=== PATIENT | male | born 1940 | race Caucasian/White ===

== ENCOUNTER 2020-12-17 19:25 | Inpatient (IN) ==
[2020-12-17] MEDS ORDERED: IOPAMIDOL 100 ML BOTTLE IV ONE (19:26)
--- NOTE | 2020-12-17 19:46 | Emergency Department Note ---
HPI General Chief complaint: Dizziness Stated complaint: dizziness Time Seen by Provider: 12/17/20 22:13 Source: patient Mode of arrival: EMS Limitations: no limitations History of Present Illness HPI Narrative: Narrative: Patient is an 80-year-old male with history of CHF and chronic dizziness who is brought in by EMS tonight with complaint of a couple of days of generalized weakness and some mild confusion. Family members did not note that he had had a fever at home but rather just noted him to be a bit slower in activities and then with some difficulty in answering detailed questions as opposed to specific confusion. No focal weakness. He denies any chest pain or shortness of breath. He has not had any cough. He has had both of his Covid shots as well as influenza shot last fall. He denies any urinary symptoms. He has chronic lower extremity swelling and his notes that they are perhaps the upper range of his normal variation in size. He has not experienced any urinary difficulties. He notes occasionally some soft stool but no persistent diarrhea or blood in the stool. He had not been aware of fever. He denies sore throat or other specific ill symptoms. No known ill contacts. Related Data Home Medications Medication Instructions Recorded Confirmed cyanocobalamin (vitamin B-12) 1,000 mcg PO DAILY 03/02/20 12/17/20 aspirin [Adult Low Dose Aspirin] 81 mg PO QHS 12/17/20 12/17/20 furosemide 40 mg PO QDAY 12/17/20 12/17/20 metformin 1,000 mg PO QHS 12/17/20 12/17/20 Previous Rx's Medication Instructions Recorded lancets 30 gauge #200 each 09/30/19 blood sugar diagnostic #100 each 08/07/20 blood-glucose meter #1 each 08/07/20 allopurinol 300 mg tablet 300 mg PO QDAY #90 tab 08/31/20 chlorthalidone 25 mg tablet 25 mg PO QDAY #90 tab 09/07/20 compress.stocking,knee,reg,med #2 each 10/25/20 carvedilol 25 mg tablet 25 mg PO BID 90 Days #180 tab 10/26/20 levothyroxine 75 mcg tablet 75 mcg PO QDAY #90 tab 12/13/20 Allergies Allergy/AdvReac Type Severity Reaction Status Date / Time No Known Drug Allergies Allergy Verified 12/17/20 19:35 Review of Systems ROS ROS Narrative: Narrative: A 10 system review of systems was performed and found to be negative except as outlined above. [facility] Narrative Patient History Narrative: Narrative: Medical/Surgical/Family History All Active Problems (Updated 12/18/20 @ 03:31 by Sen Jones MD) Acute febrile illness (Acute) Generalized weakness (Acute) Chronic systolic (congestive) heart failure (Acute) Medicare annual wellness visit, initial (Acute) Olecranon bursitis of right elbow (Acute) Carpal tunnel syndrome (Acute) Constipation (Acute) Gout attack (Acute) Cellulitis (Acute) Ataxia (Acute) Hydrocephalus (Acute) Dysphasia (Chronic) Vertigo (Chronic) Postoperative hypothyroidism (Chronic) LBBB (left bundle branch block) (Chronic) Weight gain (Chronic) Fatigue (Chronic) Hyphema of right eye (Acute) Subconjunctival hemorrhage of right eye (Acute) Sebaceous cyst (Chronic) 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) Vitamin B 12 deficiency (Chronic 09/01/14) Thyroid nodule (Chronic) Morbid obesity (Chronic 05/04/14) Hypothyroidism, acquired (Chronic 05/04/14) Hypertension, essential (Chronic) Hyperplasia of prostate with lower urinary tract symptoms (LUTS) (Chronic 08/03/12) Hyperlipidemia (Chronic 06/02/14) Hernia, ventral (Chronic 08/03/12) Esophageal reflux (Chronic 03/09/15) Erectile dysfunction (Chronic 04/21/12) Dizziness (Chronic 06/02/14) Diabetes mellitus, type II (Chronic) Excessive daytime sleepiness (Chronic) Congestive heart failure (Chronic 05/04/14) Cardiomyopathy (Chronic) Anemia (Chronic 06/02/14) Medical History (Updated 12/18/20 @ 03:31 by Sen Jones MD) Anemia (06/02/14) Bundle branch block (06/01/14-Dr Alexander) Bursitis (08/03/12) Olecranon Bursitis, right Cardiomyopathy (06/01/14-Dr Alexander) Congestive heart failure (05/04/14) Diabetes mellitus with proteinuria Diabetes mellitus, type II Disorder of thyroid Dizziness (06/02/14) Dysphasia Erectile dysfunction (04/21/12) Esophageal reflux (03/09/15) Excessive daytime sleepiness Fatigue Flank pain (04/21/12) Goiter (10/18/13-Dr Potter) Hernia, ventral (08/03/12) History of angiography (09/03/12) History of gout Hyperlipidemia (06/02/14) Hyperplasia of prostate with lower urinary tract symptoms (LUTS) (08/03/12) Hypertension, essential Hypothyroidism, acquired (05/04/14) Wants tsh, checked everytime Insomnia (02/01/13) Internal hemorrhoids with complication (08/04/12) Keratosis (04/21/12) LBBB (left bundle branch block) Lipoma of skin and subcutaneous tissue (08/03/12) Medicare annual wellness visit, initial Morbid obesity (05/04/14) Postoperative hypothyroidism Rectal bleeding (08/04/12) Screening for cholesterol level (05/04/14) Sebaceous cyst Pt does not want it removed. Shortness of breath (08/14/12) Thyroid nodule (10/18/13-Dr Potter) Vertigo Vitamin B 12 deficiency (09/01/14) Weight gain Surgical History History of cardiac catheterization (09/03/12) Left History of cataract surgery (10/18/13-Dr Potter) History of elbow surgery right History of hernia surgery History of partial thyroidectomy History of thymectomy (02/03/14) Status post cardiac pacemaker procedure (12/16/12) Biventricular ICD upgrade Family History Father , at age 72 Heart problem Mother , at age 68 Essential hypertension Social History Smoking Status: Never smoker Alcohol Intake Frequency: holiday/special occasion only Substance Use: does not use Exam Narrative Narrative: Narrative: General: Alert, elderly male who is speaking 6-8 word sentences. No overt confusion but he did seem to get hung up on discussion of flu and flu shots that kept making it way back into his discussion. HEENT: NCAT, PERRL, extraocular movements intact. There is approximately 4-6 beats of rapid eye movement on lateral gaze without persistent nystagmus. Oral pharynx with dry mucus membranes. No pharyngeal erythema. No conjunctival pallor Neck: Supple, No lymphadenopathy Chest: Stable, there is palpable mass in the left subclavian area consistent with his pacemaker/defibrillator. Heart: Borderline tachycardic and overall regular with occasional ectopy Lungs: Clear to auscultation bilaterally in the upper lung zones with decreased breath sounds and slight bibasilar inspiratory crackles in the lower lung zones Abdomen: Soft, obese, nondistended, nontender : No bladder distention Back: Nontraumatic, No CVA tenderness to palpation. Skin: No rash. He is with some forehead diaphoresis. There is a lipoma in the mid back region. Extremity: No cyanosis, there is bilateral lower extremity pitting edema, pulses 2+ radial Neurologic: Moves all extremities in appropriate coordinated fashion. General Limitations: no limitations Course Vital Signs Vital signs: Vital Signs Temperature 102.5 F H 12/17/20 19:25 Pulse Rate 105 H 12/17/20 19:25 Respiratory Rate 24 H 12/17/20 19:25 Blood Pressure 138/77 12/17/20 19:25 Pulse Oximetry (%) 94 12/17/20 19:25 Temperature 96.8 F L 12/18/20 00:49 Pulse Rate 74 12/18/20 02:51 Respiratory Rate 20 12/18/20 02:51 Blood Pressure 118/69 12/18/20 02:51 Pulse Oximetry (%) 96 12/18/20 02:51 MDM MDM Narrative Medical decision making narrative: Narrative: Patient presents with fever and generalized weakness. His chest x-ray does not show any sign of pneumonia. His urinalysis did not reveal any evidence of urinary tract infection. He does not have any abdominal pain that would imply intra-abdominal process. He was with mild confusion during his fever presentation but symptoms improved rapidly after Tylenol and I have lower suspicion for any meningitis or intracranial abscess. His Covid and influenza testing were negative but certainly he could have other flulike illness. Patient was with hypokalemia with potassium being replaced here in the emergency department. He is feeling much improved with his defervesced since, but given his age as well as other comorbidities, I do feel it appropriate that he be admitted to evaluate any potential progression. Speaking with Dr. Britton, he requested CTs to evaluate potential of other occult underlying infection prior to admission. These were completed and were without revealing further infection. During patient's work-up, he was with noted elevated pro calcitonin as well as elevated white blood cell count. I did give broad-spectrum antibiotics after blood culture was drawn but again have no specific source for infection noted at this time. Lab Data Result diagrams: 12/17/20 20:04 12/17/20 20:04 Labs: Lab Results 12/17/20 12/17/20 12/17/20 Range/Units 20:01 20:01 20:04 WBC 21.3 H (4.5-11.0) K/mcL RBC 4.75 (4.50-5.90) M/mcL Hgb 14.2 (13.5-16.5) g/dL Hct 39.6 L (41.0-55.0) % MCV 83.4 (80.0-100.0) fL MCH 29.9 (26.0-34.0) pg MCHC 35.9 (31.0-36.0) g/dL RDW 12.3 (11.5-14.5) % Plt Count 204 (140-440) K/mcL MPV 10.1 (7.4-10.4) fL Neut % (Auto) 91.5 H (38.0-78.0) % Lymph % (Auto) 2.4 L (15.0-49.0) % Hans[place] % (Auto) 5.4 (1.0-12.0) % Eos % (Auto) 0.4 (0.0-7.0) % Baso % (Auto) 0.3 (0.0-2.0) % Lymph # (Auto) 0.51 L (1.50-4.80) K/mcL Hanson # (Auto) 1.15 H (0.10-0.90) K/mcL Eos # (Auto) 0.09 (0.00-0.70) K/mcL Baso # (Auto) 0.06 (0.00-0.20) K/mcL Absolute Neutrophils 19.52 H (1.80-8.00) K/mcL ABG Methemoglobin 0.3 L (0.4-1.5) % VBG pH 7.54 H (7.32-7.42) U VBG pCO2 34.5 L (41.0-51.0) mmHg VBG pO2 77.0 H (25.0-40.0) mmHg VBG HCO3 28.6 H (24.0-28.0) mmol/L VBG Total CO2 29.6 H (25.0-29.0) mmol/L VBG O2 Saturation 92.9 H (40.0-70.0) % VBG Base Excess 6 H (-2-3) VBG Lactic Acid 3.3 H (0.5-2.0) mmol/L Carboxyhemoglobin 3.5 H (0.0-1.5) % THgb Total Hemoglobin 14.0 (13.5-16.5) gm/Dl Sodium (133-145) mmol/L Potassium (3.3-5.1) mmol/L Chloride (96-108) mmol/L Carbon Dioxide (22-30) mmol/L Anion Gap (8.0-16.0) BUN (8-23) mg/dL Creatinine (0.7-1.2) mg/dL GFR Calculation Glucose (70-105) mg/dL Calcium (8.6-10.4) mg/dL Magnesium (1.6-2.5) mg/dL Total Bilirubin (0.1-1.0) mg/dL AST (<40) U/L ALT (<40) U/L Alkaline Phosphatase (39-117) U/L Troponin T (<0.03) ng/mL NT-Pro-B Natriuret Pep (<450.0) pg/mL Total Protein (5.9-8.4) gm/dL Albumin (3.2-5.2) gm/dL Globulin (2.2-3.7) gm/dL Albumin/Globulin Ratio (1.0-2.3) Lipase (7-60) U/L Procalcitonin (<0.10) ng/mL Urine Color Urine Appearance (Clear) Urine pH (5.0-9.0) Ur Specific [place] (1.000-1.035) Urine Protein (Negative) mg/dL Urine Glucose (UA) (Negative) mg/dL Urine Ketones (Negative) mg/dL Urine Occult Blood (Negative) mg/dL Urine Nitrate (Negative) Urine Bilirubin (Negative) mg/dL Urine Urobilinogen mg/dL Ur Leukocyte Esterase (Negative) /ug Urine RBC (0-3) /hpf Urine WBC (0-4) /hpf Ur Squamous Epith Cells (0-4) /hpf Urine Bacteria (0) /hpf Ur Culture Indicated? 12/17/20 12/17/20 12/17/20 Range/Units 20:04 20:04 20:04 WBC (4.5-11.0) K/mcL RBC (4.50-5.90) M/mcL Hgb (13.5-16.5) g/dL Hct (41.0-55.0) % MCV (80.0-100.0) fL MCH (26.0-34.0) pg MCHC (31.0-36.0) g/dL RDW (11.5-14.5) % Plt Count (140-440) K/mcL MPV (7.4-10.4) fL Neut % (Auto) (38.0-78.0) % Lymph % (Auto) (15.0-49.0) % Hanson % (Auto) (1.0-12.0) % Eos % (Auto) (0.0-7.0) % Baso % (Auto) (0.0-2.0) % Lymph # (Auto) (1.50-4.80) K/mcL Hanson # (Auto) (0.10-0.90) K/mcL Eos # (Auto) (0.00-0.70) K/mcL Baso # (Auto) (0.00-0.20) K/mcL Absolute Neutrophils (1.80-8.00) K/mcL ABG Methemoglobin (0.4-1.5) % VBG pH (7.32-7.42) U VBG pCO2 (41.0-51.0) mmHg VBG pO2 (25.0-40.0) mmHg VBG HCO3 (24.0-28.0) mmol/L VBG Total CO2 (25.0-29.0) mmol/L VBG O2 Saturation (40.0-70.0) % VBG Base Excess (-2-3) VBG Lactic Acid (0.5-2.0) mmol/L Carboxyhemoglobin (0.0-1.5) % THgb Total Hemoglobin (13.5-16.5) gm/Dl Sodium 129 L (133-145) mmol/L Potassium 2.7 L* (3.3-5.1) mmol/L Chloride 87 L (96-108) mmol/L Carbon Dioxide 26 (22-30) mmol/L Anion Gap 16.0 (8.0-16.0) BUN 16 (8-23) mg/dL Creatinine 1.0 (0.7-1.2) mg/dL GFR Calculation 70 Glucose 192 H (70-105) mg/dL Calcium 9.1 (8.6-10.4) mg/dL Magnesium 1.1 L (1.6-2.5) mg/dL Total Bilirubin 0.9 (0.1-1.0) mg/dL AST 27 (<40) U/L ALT 25 (<40) U/L Alkaline Phosphatase 74 (39-117) U/L Troponin T < 0.01 (<0.03) ng/mL NT-Pro-B Natriuret Pep 372.1 (<450.0) pg/mL Total Protein 7.2 (5.9-8.4) gm/dL Albumin 4.2 (3.2-5.2) gm/dL Globulin 3.0 (2.2-3.7) gm/dL Albumin/Globulin Ratio 1.4 (1.0-2.3) Lipase 58 (7-60) U/L Procalcitonin 0.53 H (<0.10) ng/mL Urine Color Urine Appearance (Clear) Urine pH (5.0-9.0) Ur Specific [place] (1.000-1.035) Urine Protein (Negative) mg/dL Urine Glucose (UA) (Negative) mg/dL Urine Ketones (Negative) mg/dL Urine Occult Blood (Negative) mg/dL Urine Nitrate (Negative) Urine Bilirubin (Negative) mg/dL Urine Urobilinogen mg/dL Ur Leukocyte Esterase (Negative) /ug Urine RBC (0-3) /hpf Urine WBC (0-4) /hpf Ur Squamous Epith Cells (0-4) /hpf Urine Bacteria (0) /hpf Ur Culture Indicated? 12/17/20 Range/Units 21:43 WBC (4.5-11.0) K/mcL RBC (4.50-5.90) M/mcL Hgb (13.5-16.5) g/dL Hct (41.0-55.0) % MCV (80.0-100.0) fL MCH (26.0-34.0) pg MCHC (31.0-36.0) g/dL RDW (11.5-14.5) % Plt Count (140-440) K/mcL MPV (7.4-10.4) fL Neut % (Auto) (38.0-78.0) % Lymph % (Auto) (15.0-49.0) % Hanson % (Auto) (1.0-12.0) % Eos % (Auto) (0.0-7.0) % Baso % (Auto) (0.0-2.0) % Lymph # (Auto) (1.50-4.80) K/mcL [place] # (Auto) (0.10-0.90) K/mcL Eos # (Auto) (0.00-0.70) K/mcL Baso # (Auto) (0.00-0.20) K/mcL Absolute Neutrophils (1.80-8.00) K/mcL ABG Methemoglobin (0.4-1.5) % VBG pH (7.32-7.42) U VBG pCO2 (41.0-51.0) mmHg VBG pO2 (25.0-40.0) mmHg VBG HCO3 (24.0-28.0) mmol/L VBG Total CO2 (25.0-29.0) mmol/L VBG O2 Saturation (40.0-70.0) % VBG Base Excess (-2-3) VBG Lactic Acid (0.5-2.0) mmol/L Carboxyhemoglobin (0.0-1.5) % THgb Total Hemoglobin (13.5-16.5) gm/Dl Sodium (133-145) mmol/L Potassium (3.3-5.1) mmol/L Chloride (96-108) mmol/L Carbon Dioxide (22-30) mmol/L Anion Gap (8.0-16.0) BUN (8-23) mg/dL Creatinine (0.7-1.2) mg/dL GFR Calculation Glucose (70-105) mg/dL Calcium (8.6-10.4) mg/dL Magnesium (1.6-2.5) mg/dL Total Bilirubin (0.1-1.0) mg/dL AST (<40) U/L ALT (<40) U/L Alkaline Phosphatase (39-117) U/L Troponin T (<0.03) ng/mL NT-Pro-B Natriuret Pep (<450.0) pg/mL Total Protein (5.9-8.4) gm/dL Albumin (3.2-5.2) gm/dL Globulin (2.2-3.7) gm/dL Albumin/Globulin Ratio (1.0-2.3) Lipase (7-60) U/L Procalcitonin (<0.10) ng/mL Urine Color Yellow Urine Appearance Clear (Clear) Urine pH 5.0 (5.0-9.0) Ur Specific [place] 1.008 (1.000-1.035) Urine Protein Negative (Negative) mg/dL Urine Glucose (UA) Negative (Negative) mg/dL Urine Ketones Negative (Negative) mg/dL Urine Occult Blood 0.03 (Negative) mg/dL Urine Nitrate Negative (Negative) Urine Bilirubin Negative (Negative) mg/dL Urine Urobilinogen Negative mg/dL Ur Leukocyte Esterase Negative (Negative) /ug Urine RBC 1 (0-3) /hpf Urine WBC < 1 (0-4) /hpf Ur Squamous Epith Cells 0 (0-4) /hpf Urine Bacteria None (0) /hpf Ur Culture Indicated? No ED POC Tests ED POC Tests: [facility] - Influenza A Negative [facility] - Influenza B Negative [facility] - SARS Antigen Negative EKG Data EKG #1: EKG attestation: Yes I reviewed and interpreted this EKG. EKG results narrative: ECG time 1928 demonstrates paced rhythm at a rate of 108 bpm. This appears to be a ventricular paced rhythm. There are occasio nal spontaneous ventricular beats. No further interpretation is possible due to the paced nature of the rhythm. Discharge Plan Patient/Caregiver Discharge Instructions Pt seen by MANAGER OF INFORMATION/PA only: No Clinical Impression: Acute febrile illness, Generalized weakness Patient Disposition: Xfer As Inpt ([facility]) Condition: Serious Discharge Date/Time: 12/18/20 02:38 Discharge Location: [facility]
[2020-12-17] MEDS ORDERED: ACETAMINOPHEN 325 MG TABLET PO ONE (20:00)
[2020-12-17 20:32] LABS: ABG Methemoglobin 0.3 % (0.4-1.5); VBG Base Excess 6 (-2-3); VBG HCO3 28.6 mmol/L (24.0-28.0); VBG Oxygen Saturation 92.9 % (40.0-70.0); VBG PCO2 34.5 mmHg (41.0-51.0); VBG PH 7.54 U (7.32-7.42); VBG Total CO2 29.6 mmol/L (25.0-29.0)
[2020-12-17 20:34] LABS: Basophils # (Auto) 0.06 K/mcL (0.00-0.20); Basophils % (Auto) 0.3 % (0.0-2.0); Eosinophils # (Auto) 0.09 K/mcL (0.00-0.70); Eosinophils % (Auto) 0.4 % (0.0-7.0); Hematocrit 39.6 % (41.0-55.0); Hemoglobin 14.2 g/dL (13.5-16.5); Lymphocytes # (Auto) 0.51 K/mcL (1.50-4.80); Lymphocytes % (Auto) 2.4 % (15.0-49.0); Mean Cell Volume 83.4 fL (80.0-100.0); Mean Corpuscular HGB Conc 35.9 g/dL (31.0-36.0); Mean Platelet Volume 10.1 fL (7.4-10.4); Monocytes # (Auto) 1.15 K/mcL (0.10-0.90); Monocytes % (Auto) 5.4 % (1.0-12.0); Neutrophils % (Auto) 91.5 % (38.0-78.0); Platelet Count 204 K/mcL (140-440); RBC 4.75 M/mcL (4.50-5.90); Red Cell Distribution Width 12.3 % (11.5-14.5); WBC 21.3 K/mcL (4.5-11.0)
[2020-12-17 21:09] LABS: proBNP 372.1 pg/mL (<450.0)
[2020-12-17 21:18] LABS: ALT/SGPT 25 U/L (<40); AST/SGOT 27 U/L (<40); Albumin 4.2 gm/dL (3.2-5.2); Albumin/Globulin Ratio 1.4 (1.0-2.3); Alkaline Phosphatase 74 U/L (39-117); Bilirubin,Total 0.9 mg/dL (0.1-1.0); Blood Urea Nitrogen 16 mg/dL (8-23); Calcium 9.1 mg/dL (8.6-10.4); Carbon Dioxide 26 mmol/L (22-30); Chloride 87 mmol/L (96-108); Glomerular Filtration Rate 70; Glucose 192 mg/dL (70-105)
[2020-12-17] MEDS ORDERED: cefTRIAXone 2 GM in DEXTROSE 5% IN WATER 50 ML IV ONE (22:13)
[2020-12-17] MEDS ORDERED: POTASSIUM CHLORIDE 20 MEQ in DEXTROSE 5% IN WATER 250 ML IV ONE (22:13)
[2020-12-17 22:32] LABS: Appearance,Urine CLEAR (Clear); Bilirubin,Urine Negative (Negative); Color,Urine YELLOW; Culture Indicated,Urine No; Glucose,Urine (UA) Negative (Negative); Ketones,Urine Negative (Negative); Leukocyte Esterase,Urine Negative /ug (Negative); Nitrate,Urine Negative (Negative); Protein,Urine Negative (Negative); Specific Gravity,Urine 1.008 (1.000-1.035); Urine Blood 0.03 mg/dL (Negative); Urine RBC 1 /hpf (0-3); Urine Squamous Epithelial Cell 0 /hpf (0-4); Urine WBC < 1 /hpf (0-4); Urobilinogen,Urine Negative
[2020-12-18] MEDS ORDERED: PIPERACILLIN SODIUM/TAZOBACTAM 4.5 GM in DEXTROSE 5% IN WATER 50 ML IV ONE (00:01)
[2020-12-18] MEDS ORDERED: ACETAMINOPHEN 325 MG TABLET PO PRN (02:54)
--- NOTE | 2020-12-18 05:41 | XRay Report ---
INDICATION: fever, sob TECHNIQUE: PA and lateral upright chest x-ray COMPARISON: 12/17/2012, 12/16/2012 FINDINGS: Left-sided pacemaker with transvenous pacemaker leads in appropriate positions for right atrium and right ventricle. Lungs: Lungs are negative. No focal pulmonary parenchymal infiltrate or mass Heart, vascular: No significant cardiomegaly. Pulmonary vascularity is normal. No pulmonary edema or pulmonary congestion Mediastinum, edelmira: No mediastinal widening. No hilar mass Pleura:No pleural fluid. No pleural-based mass or calcification Thoracic spine, ribs: No thoracic compression fracture. Ribs are negative. No fracture. No lytic lesion IMPRESSION: 1. No acute abnormality 2. No interval change since 12/17/2012 Interpreted and Authenticated by: Aquilino Ramirez 12/18/20
--- NOTE | 2020-12-18 05:59 | Cat Scan Report ---
INDICATION: eval for pneumonia,or abdo/pelvic fever source COMPARISON: Chest CT scan dated 04/04/2016 TECHNIQUE: Axial images were obtained through the chest,abdomen and pelvis. Sagittally and coronally reformatted images. 90ml Isovue 370 injected intravenously. Oral contrast material was given FINDINGS: Examination was initially interpreted by [facility] Chest CT: Lungs:Mild parenchymal density at the lung bases consistent with mild atelectasis . No parenchymal consolidation. There is no significant centrilobular or paraseptal emphysema. There is a 4 to 5 mm pleural-based nodule in the left lower lobe, image 60. This is unchanged since 04/04/2016 and is benign. There is no honeycombing. No intralobular septal thickening. No bronchiectasis. Mediastinum:No pathologic mediastinal adenopathy. No hilar mass. Thoracic aorta is normal without aneurysmal dilatation Heart:No significant cardiomegaly. No pericardial effusion. There are pacemaker leads in place. There are severe coronary artery calcification Pleura:No pleural fluid. No pleural-based mass. No pleural calcifications Axilla, supraclavicular regions, chest wall:No pathologic axillary or supraclavicular adenopathy. 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 No compression fractures. No lytic lesions. No paraspinal mass Abdomen/Pelvis: Liver:Low density liver consistent with hepatic steatosis. There is no focal mass. Liver contour is smooth Gallbladder, bilary:Small calcified gallstones. No gallbladder wall thickening. No pericholecystic fluid. No dilated bile ducts Spleen:10 mm low density lesion within splenic parenchyma is probably a benign cyst. There is no splenomegaly. Normal enhancement of the splenic and portal veins Pancreas:There is no pancreatic mass. Pancreatic duct is not dilated. There is minimal. Pancreatic inflammatory change. There is mild peripancreatic and periportal adenopathy. Mild pancreatitis is possible. Correlation with pancreatic enzymes is recommended. Adrenal glands:Negative Kidneys, ureters, bladder: Small focal cortical defect in the right upper pole with associated calcification. There are benign left renal cyst. There is no solid renal mass. No obstructing calculi. No hydronephrosis. No hydroureter. No ureteral stones There is a catheter within the urinary bladder. Bladder is collapsed Gastrointestinal:No detectable colonic mass. There is no diverticulitis. Small bowel is negative. No mechanical small bowel obstruction. Stomach and duodenum are within normal limits Appendix: The appendix is negative Vascular:Atherosclerotic calcification of the abdominal aorta. There is no abdominal aortic aneurysm. Celiac trunk and superior mesenteric artery are normal. Inferior mesenteric artery is opacified Lymphatic:As described above there is mild peripancreatic and periportal adenopathy. This is nonspecific. No pathologic retroperitoneal adenopathy. Inguinal adenopathy Mesentery, peritoneum:No free intraperitoneal fluid. No intra-abdominal abscess. No pneumoperitoneum Reproductive:Prostate is not significantly enlarged Musculoskeletal:Severe degenerative disc disease at L5-S1. There is facet arthropathy at L4-L5 with slight anterolisthesis and spinal canal stenosis. No sacral or pelvic fracture. Hips are negative. IMPRESSION: 1. Severe coronary artery calcification 2. Hepatic steatosis 3. Mild peripancreatic inflammatory change with mild peripancreatic and portal adenopathy 4. Cholelithiasis 5. Substernal goiter, unchanged since 2016 6. No intraabdominal abscess. 7. Degenerative disc disease and facet arthropathy. Spinal canal stenosis at L4-L5 The exam was performed using radiation dose optimization techniques including, but not limited to, automated exposure control, adjustment of the mA and/or kV according to patient size and use of iterative reconstruction technique. Interpreted and Authenticated by: Aquilino Ramirez 12/18/20
--- NOTE | 2020-12-18 07:27 | Internal Med History&Physical ---
HPI History of Present Illness Patient information: Note initiated : 12/18/20 at 7:25 am Service Date, if different from initiated Date: [] Patient: Andrew León a 80 y/o M admitted on 12/18/20 for dizziness. Chief Complaint: [] History of present illness: Mr. León is a 80 year old M Presented ED with increasing weakness and lightheadedness. Sounds like there was some mild confusion as well. Does have a history of heart failure and has chr onic lower extremity swelling. The lower extremity swelling is mild off and on for quite a long time but over the past month it has been increasing despite starting diuretics through his primary care provider. 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 He went to bed the other night feeling his normal but in the morning he was too weak to get up out of the chair. He has had difficulty with weakness and walking over the past 6 months or more but yesterday morning he could not get up out of the chair and it was worse than usual. And he was also very lightheaded. He did not feel feverish but in the ED he was febrile. And no cough. He also had both Covid shots. No reports of diarrhea or dysuria Reports no recent illnesses no sick contacts. Work-up in the ED found him to have a fever and leukocytosis. Blood pressure stable. Chest x-ray is unrevealing and CT abdomen pelvis unrevealing as well. Lactate was elevated at 3.3 and procalcitonin was mildly elevated. Review of Systems: Pertinent positives as above. Denies headache/ chills/ nausea/vomiting/chest or abdominal pain/cough/dyspnea/diarrhea. Remaining 10 point review of system reviewed negative PFSH PFSH All Active Problems (Updated 12/18/20 @ 03:31 by Sen Jones MD) Acute febrile illness (Acute) Generalized weakness (Acute) Chronic systolic (congestive) heart failure (Acute) Medicare annual wellness visit, initial (Acute) Olecranon bursitis of right elbow (Acute) Carpal tunnel syndrome (Acute) Constipation (Acute) Gout attack (Acute) Cellulitis (Acute) Ataxia (Acute) Hydrocephalus (Acute) Dysphasia (Chronic) Vertigo (Chronic) Postoperative hypothyroidism (Chronic) LBBB (left bundle branch block) (Chronic) Weight gain (Chronic) Fatigue (Chronic) Hyphema of right eye (Acute) Subconjunctival hemorrhage of right eye (Acute) Sebaceous cyst (Chronic) 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) Vitamin B 12 deficiency (Chronic 09/01/14) Thyroid nodule (Chronic) Morbid obesity (Chronic 05/04/14) Hypothyroidism, acquired (Chronic 05/04/14) Hypertension, essential (Chronic) Hyperplasia of prostate with lower urinary tract symptoms (LUTS) (Chronic 08/03/12) Hyperlipidemia (Chronic 06/02/14) Hernia, ventral (Chronic 08/03/12) Esophageal reflux (Chronic 03/09/15) Erectile dysfunction (Chronic 04/21/12) Dizziness (Chronic 06/02/14) Diabetes mellitus, type II (Chronic) Excessive daytime sleepiness (Chronic) Congestive heart failure (Chronic 05/04/14) Cardiomyopathy (Chronic) Anemia (Chronic 06/02/14) Medical History (Updated 12/18/20 @ 03:31 by Sen Jones MD) Anemia (06/02/14) Bundle branch block (06/01/14-Dr Alexander) Bursitis (08/03/12) Olecranon Bursitis, right Cardiomyopathy (06/01/14-Dr Alexander) Congestive heart failure (05/04/14) Diabetes mellitus with proteinuria Diabetes mellitus, type II Disorder of thyroid Dizziness (06/02/14) Dysphasia Erectile dysfunction (04/21/12) Esophageal reflux (03/09/15) Excessive daytime sleepiness Fatigue Flank pain (04/21/12) Goiter (10/18/13-Dr Potter) Hernia, ventral (08/03/12) History of angiography (09/03/12) History of gout Hyperlipidemia (06/02/14) Hyperplasia of prostate with lower urinary tract symptoms (LUTS) (08/03/12) Hypertension, essential Hypothyroidism, acquired (05/04/14) Wants tsh, checked everytime Insomnia (02/01/13) Internal hemorrhoids with complication (08/04/12) Keratosis (04/21/12) LBBB (left bundle branch block) Lipoma of skin and subcutaneous tissue (08/03/12) Medicare annual wellness visit, initial Morbid obesity (05/04/14) Postoperative hypothyroidism Rectal bleeding (08/04/12) Screening for cholesterol level (05/04/14) Sebaceous cyst Pt does not want it removed. Shortness of breath (08/14/12) Thyroid nodule (10/18/13-Dr Potter) Vertigo Vitamin B 12 deficiency (09/01/14) Weight gain Surgical History History of cardiac catheterization (09/03/12) Left History of cataract surgery (10/18/13-Dr Potter) History of elbow surgery right History of hernia surgery History of partial thyroidectomy History of thymectomy (02/03/14) Status post cardiac pacemaker procedure (12/16/12) Biventricular ICD upgrade Family History Father , at age 72 Heart problem Mother , at age 68 Essential hypertension Social History marital status: alcohol intake frequency: holiday/special occasion only substance use type: does not use MEDS/ALLERGIES Home Medications and Allergies Home Medications Medication Instructions Recorded Confirmed Type lancets 30 gauge #200 each 09/30/19 12/18/20 Rx cyanocobalamin (vitamin B-12) 1,000 mcg PO DAILY 03/02/20 12/17/20 History blood-glucose meter #1 each 08/07/20 12/18/20 Rx allopurinol 300 mg tablet 300 mg PO QDAY #90 tab 08/31/20 12/17/20 Rx chlorthalidone 25 mg tablet 25 mg PO QDAY #90 tab 09/07/20 12/17/20 Rx carvedilol 25 mg tablet 25 mg PO BID 90 Days #180 tab 10/26/20 12/17/20 Rx levothyroxine 75 mcg tablet 75 mcg PO QDAY #90 tab 12/13/20 12/17/20 Rx aspirin [Adult Low Dose Aspirin] 81 mg PO QHS 12/17/20 12/17/20 History furosemide 40 mg PO BID 12/17/20 12/18/20 History metformin 1,000 mg PO QHS 12/17/20 12/17/20 History Allergies Allergy/AdvReac Type Severity Reaction Status Date / Time No Known Drug Allergies Allergy Verified 12/17/20 19:35 EXAM Constitutional Vitals: Temp Pulse Resp BP Pulse Ox 98.4 F 74 20 139/88 97 12/18/20 04:01 12/18/20 03:15 12/18/20 06:24 12/18/20 04:01 12/18/20 07:00 Exam: General: Alert, Awake, No acute Distress, obese Eyes/N/T: EOMI, PERRL, Head/Neck: neck supple, normocephalic atraumatic CV: RRR, No murmurs, normal s1/s2 Pulm: Clear b/l, no wheezing/rhonchi/rales Abd: soft, nontender, +BS x4 Ext: no clubbing/cyanosis, 3+ b/l LE edema Neuro: Alert, no focal deficits, moves all extremities, CN 2-12 grossly intact, symmetrical strength b/l upper/lower, sensations intact b/l upper/lower Skin: warm/dry DATA Data Completed and Pending Labs: Labs from last 24 hours 12/17/20 12/17/20 12/17/20 21:43 20:04 20:04 WBC RBC Hgb Hct MCV MCH MCHC RDW Plt Count MPV Neut % (Auto) Lymph % (Auto) [place] % (Auto) Eos % (Auto) Baso % (Auto) Lymph # (Auto) [place] # (Auto) Eos # (Auto) Baso # (Auto) Absolute Neutrophils ABG Methemoglobin VBG pH VBG pCO2 VBG pO2 VBG HCO3 VBG Total CO2 VBG O2 Saturation VBG Base Excess VBG Lactic Acid Carboxyhemoglobin Total Hemoglobin Sodium Potassium Chloride Carbon Dioxide Anion Gap BUN Creatinine GFR Calculation Glucose Calcium Magnesium Total Bilirubin AST ALT Alkaline Phosphatase Troponin T < 0.01 NT-Pro-B Natriuret Pep Total Protein Albumin Globulin Albumin/Globulin Ratio Lipase Procalcitonin 0.53 H Urine Color Yellow Urine Appearance Clear Urine pH 5.0 Ur Specific [place] 1.008 Urine Protein Negative Urine Glucose (UA) Negative Urine Ketones Negative Urine Occult Blood 0.03 Urine Nitrate Negative Urine Bilirubin Negative Urine Urobilinogen Negative Ur Leukocyte Esterase Negative Urine RBC 1 Urine WBC < 1 Ur Squamous Epith Cells 0 Urine Bacteria None Ur Culture Indicated? No 12/17/20 12/17/20 12/17/20 20:04 20:04 20:01 WBC 21.3 H RBC 4.75 Hgb 14.2 Hct 39.6 L MCV 83.4 MCH 29.9 MCHC 35.9 RDW 12.3 Plt Count 204 MPV 10.1 Neut % (Auto) 91.5 H Lymph % (Auto) 2.4 L [place] % (Auto) 5.4 Eos % (Auto) 0.4 Baso % (Auto) 0.3 Lymph # (Auto) 0.51 L [place] # (Auto) 1.15 H Eos # (Auto) 0.09 Baso # (Auto) 0.06 Absolute Neutrophils 19.52 H ABG Methemoglobin VBG pH VBG pCO2 VBG pO2 VBG HCO3 VBG Total CO2 VBG O2 Saturation VBG Base Excess VBG Lactic Acid 3.3 H Carboxyhemoglobin Total Hemoglobin Sodium 129 L Potassium 2.7 L* Chloride 87 L Carbon Dioxide 26 Anion Gap 16.0 BUN 16 Creatinine 1.0 GFR Calculation 70 Glucose 192 H Calcium 9.1 Magnesium 1.1 L Total Bilirubin 0.9 AST 27 ALT 25 Alkaline Phosphatase 74 Troponin T NT-Pro-B Natriuret Pep 372.1 Total Protein 7.2 Albumin 4.2 Globulin 3.0 Albumin/Globulin Ratio 1.4 Lipase 58 Procalcitonin Urine Color Urine Appearance Urine pH Ur Specific [place] Urine Protein Urine Glucose (UA) Urine Ketones Urine Occult Blood Urine Nitrate Urine Bilirubin Urine Urobilinogen Ur Leukocyte Esterase Urine RBC Urine WBC Ur Squamous Epith Cells Urine Bacteria Ur Culture Indicated? 12/17/20 20:01 WBC RBC Hgb Hct MCV MCH MCHC RDW Plt Count MPV Neut % (Auto) Lymph % (Auto) [place] % (Auto) Eos % (Auto) Baso % (Auto) Lymph # (Auto) [place] # (Auto) Eos # (Auto) Baso # (Auto) Absolute Neutrophils ABG Methemoglobin 0.3 L VBG pH 7.54 H VBG pCO2 34.5 L VBG pO2 77.0 H VBG HCO3 28.6 H VBG Total CO2 29.6 H VBG O2 Saturation 92.9 H VBG Base Excess 6 H VBG Lactic Acid Carboxyhemoglobin 3.5 H Total Hemoglobin 14.0 Sodium Potassium Chloride Carbon Dioxide Anion Gap BUN Creatinine GFR Calculation Glucose Calcium Magnesium Total Bilirubin AST ALT Alkaline Phosphatase Troponin T NT-Pro-B Natriuret Pep Total Protein Albumin Globulin Albumin/Globulin Ratio Lipase Procalcitonin Urine Color Urine Appearance Urine pH Ur Specific [place] Urine Protein Urine Glucose (UA) Urine Ketones Urine Occult Blood Urine Nitrate Urine Bilirubin Urine Urobilinogen Ur Leukocyte Esterase Urine RBC Urine WBC Ur Squamous Epith Cells Urine Bacteria Ur Culture Indicated? A/P Narrative A/P Narrative: A: *Sepsis w/lactic acidosis: Unknown source of infection -febrile/leukocytosis/elevated PCT&lactate -CXR and Abd/pelv imaging unremarkable for source, no wounds *Peripheral edema, acute on chronic: *CMP(EF 45% in September) w/ACID: *Hyponatremia: *Hypokalemia/hypomagnesemia: *DM: *HTN: *Hypothyroidism: *NPH: P: -Zosyn, pending BC -urine studies -electrolyte replacement -cont home ASA/Coreg (start on lower dose and monitor BP) -SSI, hold metformin -compression stockings/elevate -pt/ot -ppx: lovenox full code Time Spent With Patient Time: Total time spent is greater than 50% in coordination of care (as documented) at patient's floor/unit and/or counseling patient: QUALITY VTE Deep Vein Thrombosis/Pulmonary Embolism Present on Admission: No
[2020-12-18] MEDS ORDERED: MAGNESIUM SULFATE 2 GM/50 ML BAG IV ONE ×2 (07:32→17:17)
[2020-12-18] MEDS ORDERED: POTASSIUM CHLORIDE 20 MEQ TABLET PO ONE ×3 (07:32→21:00)
[2020-12-18] MEDS: PIPERACILLIN SODIUM/TAZOBACTAM 3.375 GM in DEXTROSE 5% IN WATER 50 ML IV SCH ×3 (08:16→18:00)
[2020-12-18 08:52] LABS: Osmolality,Urine 422 mOSM/kg (80-1000); Sodium, Urine Random 71 mmol/L
[2020-12-18] MEDS ORDERED: FUROSEMIDE 40 MG/4 ML VIAL IV ONE (09:06)
[2020-12-18] MEDS ORDERED: POTASSIUM CHLORIDE 40 MEQ in DEXTROSE 5% IN WATER 500 ML IV PRN (09:07)
[2020-12-18] MEDS ORDERED: POTASSIUM CHLORIDE 20 MEQ TABLET PO PRN ×2 (09:07)
[2020-12-18] MEDS ORDERED: SENNOSIDES 1 TABLET PO PRN (09:07)
[2020-12-18] MEDS ORDERED: DEXTROSE 31 GM ORAL.SUSP PO PRN (09:07)
[2020-12-18] MEDS ORDERED: DEXTROSE 50% 50 ML VIAL IV PRN (09:07)
[2020-12-18] MEDS ORDERED: MAGNESIUM SULFATE 2 GM/50 ML BAG IV PRN (09:07)
[2020-12-18] MEDS ORDERED: ONDANSETRON 4 MG/2 ML VIAL IV PRN (09:07)
[2020-12-18] MEDS ORDERED: IPRATROPIUM/ALBUTEROL 3 ML AMPUL.NEB NEB PRN (09:07)
[2020-12-18 09:14] LABS: Uric Acid 7.1 mg/dL (2.5-8.0)
[2020-12-18] MEDS: ENOXAPARIN 40 MG/0.4 ML SYRINGE SQ SCH (09:30)
[2020-12-18 10:33] LABS: Band Neutrophils % 3 % (0-10); Lymphocytes % 4 % (15-49); Monocytes % (Manual) 3 % (1-12); Platelet Estimate NORMAL (Normal); RBC Morphology NORMAL (Normal); Segmented Neutrophils % 90 % (38-78)
[2020-12-18] MEDS: INSULIN LISPRO 1 UNIT/0.01 ML UNIT SQ SCH ×3 (11:55→20:31)
[2020-12-18] MEDS: 0.9 % SODIUM CHLORIDE 10 ML SYRINGE IV SCH ×4 (13:41→23:00)
[2020-12-18] MEDS: CARVEDILOL 12.5 MG TABLET PO SCH (17:29)
[2020-12-18 17:35] LABS: Blood Urea Nitrogen 15 mg/dL (8-23); Calcium 9.2 mg/dL (8.6-10.4); Carbon Dioxide 32 mmol/L (22-30); Chloride 88 mmol/L (96-108); Glomerular Filtration Rate 56; Glucose 148 mg/dL (70-105)
[2020-12-18] MEDS ORDERED: POTASSIUM CHLORIDE 20 MEQ in DEXTROSE 5% IN WATER 250 ML IV ONE (17:36)
[2020-12-18] MEDS ORDERED: FUROSEMIDE 20 MG/2 ML VIAL IV ONE (18:31)
[2020-12-18] MEDS ORDERED: VANCOMYCIN PER PHARMACY IV ONE (18:45)
[2020-12-18] MEDS: VANCOMYCIN 1,500 MG in 0.9 % SODIUM CHLORIDE 500 ML IV SCH (20:10)
[2020-12-18] MEDS ORDERED: VANCOMYCIN PER PHARMACY IV SCH (20:15)
[2020-12-18] MEDS: DOCUSATE SODIUM 100 MG CAPSULE PO SCH (20:32)
[2020-12-18] MEDS ORDERED: ASPIRIN 81 MG TAB.CHEW PO SCH (21:00)
[2020-12-19] MEDS: 0.9 % SODIUM CHLORIDE 10 ML SYRINGE IV SCH ×4 (00:20→21:53)
[2020-12-19] MEDS: PIPERACILLIN SODIUM/TAZOBACTAM 3.375 GM in DEXTROSE 5% IN WATER 50 ML IV SCH ×2 (00:22→05:49)
[2020-12-19 06:47] LABS: Basophils # (Auto) 0.04 K/mcL (0.00-0.20); Basophils % (Auto) 0.3 % (0.0-2.0); Eosinophils # (Auto) 0.04 K/mcL (0.00-0.70); Eosinophils % (Auto) 0.3 % (0.0-7.0); Hematocrit 36.8 % (41.0-55.0); Hemoglobin 12.8 g/dL (13.5-16.5); Lymphocytes # (Auto) 1.47 K/mcL (1.50-4.80); Lymphocytes % (Auto) 10.3 % (15.0-49.0); Mean Cell Volume 85.8 fL (80.0-100.0); Mean Corpuscular HGB Conc 34.8 g/dL (31.0-36.0); Mean Platelet Volume 10.3 fL (7.4-10.4); Neutrophils % (Auto) 82.1 % (38.0-78.0); Platelet Count 163 K/mcL (140-440); RBC 4.29 M/mcL (4.50-5.90); Red Cell Distribution Width 12.8 % (11.5-14.5); WBC 14.3 K/mcL (4.5-11.0)
[2020-12-19] MEDS: DOCUSATE SODIUM 100 MG CAPSULE PO SCH (07:26)
[2020-12-19] MEDS: CARVEDILOL 12.5 MG TABLET PO SCH ×2 (07:33→17:45)
[2020-12-19] MEDS: INSULIN LISPRO 1 UNIT/0.01 ML UNIT SQ SCH ×4 (07:33→21:54)
[2020-12-19 07:40] LABS: ALT/SGPT 20 U/L (<40); AST/SGOT 20 U/L (<40); Albumin 3.4 gm/dL (3.2-5.2); Albumin/Globulin Ratio 1.1 (1.0-2.3); Alkaline Phosphatase 63 U/L (39-117); Bilirubin,Direct 0.3 mg/dL (<0.3); Blood Urea Nitrogen 14 mg/dL (8-23); Calcium 8.7 mg/dL (8.6-10.4); Carbon Dioxide 28 mmol/L (22-30); Chloride 91 mmol/L (96-108); Globulin 3.1 gm/dL (2.2-3.7); Glomerular Filtration Rate 62; Glucose 141 mg/dL (70-105); Lactate Dehydrogenase 150 U/L (135-225); Phosphorous 2.8 mg/dL (2.5-4.5); Triglycerides 93 mg/dL (<150); Uric Acid 6.6 mg/dL (2.5-8.0)
--- NOTE | 2020-12-19 07:40 | Internal Med Progress Note ---
SUBJECTIVE Subjective Patient information: Note initiated : 12/19/20 at 7:35 am Service Date, if different from initiated Date: [] Patient: Andrew León 80 y/o M admitted on 12/18/20 for dizziness. Chief Complaint: [] Interval history: History of present illness: Mr. León is a 80 year old M Presented ED with increasing weakness and lightheadedness. Sounds like there was some mild confusion as well. Does have a history of heart failure and has chronic lower extremity swelling. The lower extremity swelling is mild off and on for quite a long time but over the past month it has been increasing despite starting diuretics through his primary care provider. 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 He went to bed the other night feeling his normal but in the morning he was too weak to get up out of the chair. He has had difficulty with weakness and walking over the past 6 months or more but yesterday morning he could not get up out of the chair and it was worse than usual. And he was also very lightheaded. He did not feel feverish but in the ED he was febrile. And no cough. He also had both Covid shots. No reports of diarrhea or dysuria Reports no recent illnesses no sick contacts. Work-up in the ED found him to have a fever and leukocytosis. Blood pressure stable. Chest x-ray is unrevealing and CT abdomen pelvis unrevealing as well. Lactate was elevated at 3.3 and procalcitonin was mildly elevated. 4/6 No new pains or complaints or overnight events. Leukocytosis improved. Sodium little better potassium allow. The blood culture obtained in the ED is growing gram-positive cocci. Patient started on Vanco symptoms that resulted. He still feels weak. He did have diarrhea after the oral contrast for the CT abdomen Review of Systems: denies headache/fever/chills/nausea/vomiting/chest or abdominal pain/cough/dyspnea. Otherwise see above. Constitutional Vitals: Vital Signs Temp Pulse Resp BP Pulse Ox 98.1 F 72 13 134/74 94 12/19/20 04:01 12/18/20 16:19 12/19/20 07:08 12/19/20 06:16 12/19/20 07:08 Period Temp Pulse Resp BP Sys/[place] Pulse Ox Last 24 Hr 97.9 F-99.8 F 72 13-23 108-150/57-107 91-100 Intake and Output 12/18/20 12/19/20 12/19/20 21:59 05:59 13:59 Intake Total 530 550 290 Output Total 750 1200 300 Balance -220 -650 -10 Weight 120.111 kg Intake & Output: Intake & Output 12/18/20 12/19/20 12/19/20 21:59 05:59 13:59 Intake Total 530 550 290 Output Total 750 1200 300 Balance -220 -650 -10 Weight 120.111 kg Intake: IV 410 550 50 Zosyn 3.375 gm In Dextrose 5% 100 50 50 in Water 50 ml @ 100 mls/hr IV Q6H [facility] Rx#:[id number] Potassium Chloride 20 Meq In 260 Dextrose 5% in Water 250 ml @ 130 mls/hr IV ONCE ONE Rx#: [id number] Vancomycin 1,500 mg In Sodium 500 Chloride 0.9% 500 ml @ 333.3 mls/hr IV Q12H [facility] Rx#: [id number] Oral 120 240 Output: Urine Catheter Amount 750 1200 300 Other: Meal Apple sauce Percent of Meal Consumed 100% Feeding Ability Independent Urine Appearance Clear Clear Uretheral ([place]) Cloudy Urine Color Dark Yellow Bright Yellow Uretheral ([place]) Dark Yellow Blood Tinged Urine Odor Normal Normal Stool Size Small Stool Color Brown Stool Consistency Liquid Exam: General: Alert, Awake, No acute Distress, obese Eyes/N/T: EOMI, , Head/Neck: neck supple, CV: RRR, No murmurs, Pulm: Clear b/l, no wheezing/rhonchi/rales Abd: soft, nontender, +BS x4 Ext: no clubbing/cyanosis, 3+ b/l LE edema Neuro: Alert, no focal deficits, moves all extremities, Skin: warm/dry OBJ DATA Labs CBC & Chem 7: 12/19/20 05:30 12/19/20 05:30 Labs: Abnormal Lab Results 12/19/20 12/19/20 12/18/20 05:30 05:30 15:53 WBC 14.3 H RBC 4.29 L Hgb 12.8 L Hct 36.8 L Neut % (Auto) 82.1 H Lymph % (Auto) 10.3 L Lymph # (Auto) 1.47 L [place] # (Auto) 1.00 H Seg Neutrophils % Lymphocytes % Absolute Neutrophils 11.70 H ABG Methemoglobin VBG pH VBG pCO2 VBG pO2 VBG HCO3 VBG Total CO2 VBG O2 Saturation VBG Base Excess VBG Lactic Acid Carboxyhemoglobin Sodium 128 L Potassium 2.8 L* Chloride 88 L Carbon Dioxide 32 H Glucose 148 H Magnesium 1.5 L C-Reactive Protein 21.60 H Procalcitonin 12/18/20 12/17/20 12/17/20 08:11 20:04 20:04 WBC RBC Hgb Hct Neut % (Auto) Lymph % (Auto) Lymph # (Auto) [place] # (Auto) Seg Neutrophils % 90 H Lymphocytes % 4 L Absolute Neutrophils ABG Methemoglobin VBG pH VBG pCO2 VBG pO2 VBG HCO3 VBG Total CO2 VBG O2 Saturation VBG Base Excess VBG Lactic Acid Carboxyhemoglobin Sodium 129 L Potassium 2.7 L* Chloride 87 L Carbon Dioxide Glucose 192 H Magnesium 1.1 L C-Reactive Protein Procalcitonin 0.53 H 12/17/20 12/17/20 12/17/20 20:04 20:01 20:01 WBC 21.3 H RBC Hgb Hct 39.6 L Neut % (Auto) 91.5 H Lymph % (Auto) 2.4 L Lymph # (Auto) 0.51 L [place] # (Auto) 1.15 H Seg Neutrophils % Lymphocytes % Absolute Neutrophils 19.52 H ABG Methemoglobin 0.3 L VBG pH 7.54 H VBG pCO2 34.5 L VBG pO2 77.0 H VBG HCO3 28.6 H VBG Total CO2 29.6 H VBG O2 Saturation 92.9 H VBG Base Excess 6 H VBG Lactic Acid 3.3 H Carboxyhemoglobin 3.5 H Sodium Potassium Chloride Carbon Dioxide Glucose Magnesium C-Reactive Protein Procalcitonin Meds: Medications Acetaminophen (Acetaminophen 325 Mg Tablet) 650 mg PO Q6HP PRN; Protocol PRN Reason: Per Pain Protocol/Fever > 99 Last Admin: 12/18/20 22:34 Dose: 650 mg Documented by: Albuterol/Ipratropium (Ipratropium/Albuterol 3 Ml Ampul.Neb) 3 ml NEB Q4HP PRN PRN Reason: Shortness Of Breath Allopurinol (Allopurinol 300 Mg Tablet) 300 mg PO DAILY [facility] Aspirin (Aspirin 81 Mg Tab.Chew) 81 mg PO HS [facility] Last Admin: 12/18/20 20:32 Dose: 81 mg Documented by: Carvedilol (Carvedilol 12.5 Mg Tablet) 12.5 mg PO BIDCC [facility] Last Admin: 12/19/20 07:33 Dose: 12.5 mg Documented by: Dextrose (Dextrose 50% 50 Ml Vial) 0 ml IV UD PRN PRN Reason: Hypoglycemia Diagnostic Test (Pha) (Accu-Chek 1 Each Strip) 1 each FS [facility] Last Admin: 12/19/20 07:26 Dose: 1 each Documented by: Docusate Sodium (Docusate Sodium 100 Mg Capsule) 100 mg PO BID [facility] Last Admin: 12/19/20 07:26 Dose: Not Given Documented by: Enoxaparin Sodium (Enoxaparin 40 Mg/0.4 Ml Syringe) 40 mg SQ DAILY [facility] Last Admin: 12/18/20 09:30 Dose: 40 mg Documented by: Glucose (Dextrose 31 Gm Oral.Susp) 15 gm PO PRN PRN PRN Reason: Hypoglycemia Piperacillin Sod/Tazobactam (Sod 3.375 gm/ Dextrose) 50 mls @ 100 mls/hr IV Q6H [facility]; Protocol Last Infusion: 12/19/20 06:21 Dose: Infused Documented by: Potassium Chloride 40 meq/ (Dextrose) 520 mls @ 130 mls/hr IV UD PRN PRN Reason: Potassium < 3 Magnesium Sulfate (Magnesium Sulfate) 2 gm in 50 mls @ 50 mls/hr IV UD PRN PRN Reason: Magnesium </= 1.6 Vancomycin HCl 1,500 mg/ (Sodium Chloride) 500 mls @ 333.3 mls/hr IV Q12H [facility] Last Infusion: 12/18/20 23:00 Dose: Infused Documented by: Insulin Human Lispro (Insulin Lispro 1 Unit/0.01 Ml Unit) 0 unit SQ [facility]; Protocol Last Admin: 12/19/20 07:33 Dose: 4 unit Documented by: Levothyroxine Sodium (Levothyroxine 75 Mcg Tablet) 75 mcg PO ACB [facility] Ondansetron HCl (Ondansetron 4 Mg/2 Ml Vial) 4 mg IV Q4HP PRN PRN Reason: Nausea And Vomiting Potassium Chloride (Potassium Chloride 20 Meq Tablet) 40 meq PO UD PRN PRN Reason: Potssium is 3-3.5 Last Admin: 12/18/20 17:53 Dose: 40 meq Documented by: Potassium Chloride (Potassium Chloride 20 Meq Tablet) 40 meq PO UD PRN PRN Reason: Potassium < 3 Senna (Sennosides 1 Tablet) 2 tab PO DAILYP PRN PRN Reason: Constipation Sodium Chloride (0.9 % Sodium Chloride 10 Ml Syringe) 10 ml IV Q8 DRU Last Admin: 12/19/20 05:49 Dose: 10 ml Documented by: Vancomycin HCl (Vancomycin Per Pharmacy) 1 order IV UD DRU; Protocol ABG Interpretation ABG results: 12/17/20 20:01 ABG Methemoglobin 0.3 L VBG pH 7.54 H VBG pCO2 34.5 L VBG pO2 77.0 H VBG HCO3 28.6 H VBG Total CO2 29.6 H VBG O2 Saturation 92.9 H VBG Base Excess 6 H A/P Narrative A/P Narrative: A: *Bacteremia (GPC): unknown source of entry -chest/abd/pelv and UA unremarkable, no wounds *Sepsis w/lactic acidosis: 2/2 above -afebrile o/n -leukocytosis improving *Peripheral edema, acute on chronic: *CMP(EF 45% in September) w/ACID: *Hyponatremia: improving *Hypokalemia/hypomagnesemia: improving *DM: *HTN: *Hypothyroidism: *NPH: P: -Vanc/Zosyn, pending BC and f/u BC -electrolyte replacement -cont home ASA/Coreg (start on lower dose and monitor BP) -SSI, hold metformin -compression stockings/elevate -pt/ot -ppx: lovenox full code Time Spent With Patient Time: Total time spent is greater than 50% in coordination of care (as documented) at patient's floor/unit and/or counseling patient: QUALITY VTE Deep Vein Thrombosis/Pulmonary Embolism Present on Admission: No
[2020-12-19] MEDS ORDERED: POTASSIUM CHLORIDE 40 MEQ in DEXTROSE 5% IN WATER 500 ML IV ONE (07:47)
[2020-12-19] MEDS ORDERED: POTASSIUM CHLORIDE 20 MEQ TABLET PO SCH ×2 (08:00→12:00)
[2020-12-19] MEDS ORDERED: FUROSEMIDE 40 MG/4 ML VIAL IV SCH ×2 (08:20→16:00)
[2020-12-19] MEDS: ENOXAPARIN 40 MG/0.4 ML SYRINGE SQ SCH (08:58)
[2020-12-19] MEDS ORDERED: LEVOTHYROXINE 75 MCG TABLET PO SCH (09:00)
[2020-12-19] MEDS ORDERED: ALLOPURINOL 300 MG TABLET PO SCH (09:00)
[2020-12-19] MEDS: VANCOMYCIN 1,500 MG in 0.9 % SODIUM CHLORIDE 500 ML IV SCH (09:01)
[2020-12-19] MEDS ORDERED: DEXTROSE 50% 50 ML VIAL IV PRN (10:38)
[2020-12-19] MEDS ORDERED: IPRATROPIUM/ALBUTEROL 3 ML AMPUL.NEB NEB PRN (10:38)
[2020-12-19] MEDS ORDERED: SENNOSIDES 1 TABLET PO PRN (10:38)
[2020-12-19] MEDS ORDERED: DEXTROSE 31 GM ORAL.SUSP PO PRN (10:38)
[2020-12-19] MEDS ORDERED: IOPAMIDOL 100 ML BOTTLE IV ONE (10:38)
[2020-12-19] MEDS ORDERED: MAGNESIUM SULFATE 2 GM/50 ML BAG IV PRN (10:38)
[2020-12-19] MEDS ORDERED: POTASSIUM CHLORIDE 40 MEQ in DEXTROSE 5% IN WATER 500 ML IV PRN (10:38)
[2020-12-19] MEDS ORDERED: ONDANSETRON 4 MG/2 ML VIAL IV PRN (10:38)
[2020-12-19] MEDS ORDERED: POTASSIUM CHLORIDE 20 MEQ TABLET PO PRN (10:38)
[2020-12-19] MEDS ORDERED: ACETAMINOPHEN 325 MG TABLET PO PRN (10:38)
--- NOTE | 2020-12-19 10:54 | Ultrasound Report ---
INDICATION: r/o dvt, also eval for calf abscess from celluliti COMPARISON: None. TECHNIQUE: Grayscale and color flow Doppler spectral imaging of the deep venous system in the left lower extremity. FINDINGS: Negative examination. No evidence for deep venous thrombosis. Negative left common femoral vein, femoral vein, popliteal vein. Posterior tibial veins and peroneal veins are negative. Greater and lesser saphenous veins are negative. IMPRESSION: Negative examination for deep venous thrombosis Interpreted and Authenticated by: Aquilino Ramirez 12/19/20
[2020-12-19] MEDS: cefTRIAXone 2 GM in DEXTROSE 5% IN WATER 50 ML IV SCH (11:00)
[2020-12-19] MEDS: POTASSIUM CHLORIDE 20 MEQ TABLET PO SCH ×2 (12:18→17:46)
[2020-12-19] MEDS ORDERED: FUROSEMIDE 20 MG/2 ML VIAL IV ONE (19:26)
[2020-12-19] MEDS ORDERED: DOCUSATE SODIUM 100 MG CAPSULE PO SCH (21:00)
[2020-12-19] MEDS: ASPIRIN 81 MG TAB.CHEW PO SCH (21:53)
[2020-12-20] MEDS: 0.9 % SODIUM CHLORIDE 10 ML SYRINGE IV SCH ×3 (05:37→20:42)
[2020-12-20] MEDS: CARVEDILOL 12.5 MG TABLET PO SCH ×2 (07:39→17:30)
[2020-12-20] MEDS: FUROSEMIDE 20 MG TABLET PO SCH ×2 (07:39→16:12)
[2020-12-20] MEDS: LEVOTHYROXINE 75 MCG TABLET PO SCH (07:39)
--- NOTE | 2020-12-20 07:43 | Internal Med Progress Note ---
SUBJECTIVE Subjective Patient information: Note initiated : 12/20/20 at 7:39 am Service Date, if different from initiated Date: [] Patient: Andrew León a 80 y/o M admitted on 12/18/20 for dizziness. Chief Complaint: [] Interval history: History of present illness: Mr. León is a 80 year old M Presented ED with increasing weakness and lightheadedness. Sounds like there was some mild confusion as well. Does have a history of heart failure and has chronic lower extremity swelling. The lower extremity swelling is mild off and on for quite a long time but over the past month it has been increasing despite starting diuretics through his primary care provider. 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 He went to bed the other night feeling his normal but in the morning he was too weak to get up out of the chair. He has had difficulty with weakness and walking over the past 6 months or more but yesterday morning he could not get up out of the chair and it was worse than usual. And he was also very lightheaded. He did not feel feverish but in the ED he was febrile. And no cough. He also had both Covid shots. No reports of diarrhea or dysuria Reports no recent illnesses no sick contacts. Work-up in the ED found him to have a fever and leukocytosis. Blood pressure stable. Chest x-ray is unrevealing and CT abdomen pelvis unrevealing as well. Lactate was elevated at 3.3 and procalcitonin was mildly elevated. 12/19 No new pains or complaints or overnight events. Leukocytosis improved. Sodium little better potassium allow. The blood culture obtained in the ED is growing gram-positive cocci. Patient started on Vanco symptoms that resulted. He still feels weak. He did have diarrhea after the oral contrast for the CT abdomen 12/20 Patient says he remembers a little white bump on his legs that he scratched and got a little bigger after he scratched it. Says his left leg feels little better today less tender. Patient overall feeling better. Overnight event or new complaints. Awaiting labs. Review of Systems: denies headache/fever/chills/nausea/vomiting/chest or abdominal pain/cough/dyspnea. Otherwise see above. Constitutional Vitals: Vital Signs Temp Pulse Resp BP Pulse Ox 98.5 F 72 16 123/69 94 12/20/20 03:22 12/20/20 03:22 12/20/20 03:22 12/20/20 03:22 12/20/20 03:22 Period Temp Pulse Resp BP Sys/Corona Pulse Ox Last 24 Hr 98.0 F-98.5 F 72-80 12-22 98-152/59-89 92-96 Intake and Output 12/19/20 12/20/20 12/20/20 21:59 05:59 13:59 Intake Total 510 200 Output Total 1175 1250 Balance -665 -1050 Weight 119.249 kg Intake & Output: Intake & Output 12/19/20 12/20/20 12/20/20 21:59 05:59 13:59 Intake Total 510 200 Output Total 1175 1250 Balance -665 -1050 Weight 119.249 kg Intake: Oral 450 200 GI Tube Flush 60 Output: Urine Catheter Amount 1175 1250 Other: Meal Dinner Percent of Meal Consumed Refused Urine Appearance Clear Clear Uretheral ([place]) Clear Urine Color [place] Dark Yellow Uretheral ([place]) Bright Yellow Stool Size Small Stool Color Brown Stool Consistency Soft # Bowel Movements 1 Exam: General: Alert, Awake, No acute Distress, obese Eyes/N/T: EOMI, , Head/Neck: neck supple, CV: RRR, No murmurs, Pulm: Clear b/l, no wheezing/rhonchi/rales Abd: soft, nontender, +BS x4 Ext: no clubbing/cyanosis, 1+ RLE improved 2+ LLE edema improving Neuro: Alert, no focal deficits, moves all extremities, Skin: warm/dry OBJ DATA Labs CBC & Chem 7: 12/19/20 05:30 12/19/20 17:31 Labs: Abnormal Lab Results 12/19/20 12/19/20 12/19/20 05:30 05:30 05:30 WBC 14.3 H RBC 4.29 L Hgb 12.8 L Hct 36.8 L Neut % (Auto) 82.1 H Lymph % (Auto) 10.3 L Lymph # (Auto) 1.47 L [place] # (Auto) 1.00 H Seg Neutrophils % Lymphocytes % Absolute Neutrophils 11.70 H ABG Methemoglobin VBG pH VBG pCO2 VBG pO2 VBG HCO3 VBG Total CO2 VBG O2 Saturation VBG Base Excess VBG Lactic Acid Carboxyhemoglobin Sodium 130 L Potassium 2.7 L* Chloride 91 L Carbon Dioxide Glucose 141 H Magnesium Direct Bilirubin 0.3 H GGT 73 H C-Reactive Protein 21.60 H Procalcitonin 1.98 H 12/18/20 12/18/20 12/17/20 15:53 08:11 20:04 WBC RBC Hgb Hct Neut % (Auto) Lymph % (Auto) Lymph # (Auto) [place] # (Auto) Seg Neutrophils % 90 H Lymphocytes % 4 L Absolute Neutrophils ABG Methemoglobin VBG pH VBG pCO2 VBG pO2 VBG HCO3 VBG Total CO2 VBG O2 Saturation VBG Base Excess VBG Lactic Acid Carboxyhemoglobin Sodium 128 L Potassium 2.8 L* Chloride 88 L Carbon Dioxide 32 H Glucose 148 H Magnesium 1.5 L Direct Bilirubin GGT C-Reactive Protein Procalcitonin 0.53 H 12/17/20 12/17/20 12/17/20 20:04 20:04 20:01 WBC 21.3 H RBC Hgb Hct 39.6 L Neut % (Auto) 91.5 H Lymph % (Auto) 2.4 L Lymph # (Auto) 0.51 L [place] # (Auto) 1.15 H Seg Neutrophils % Lymphocytes % Absolute Neutrophils 19.52 H ABG Methemoglobin VBG pH VBG pCO2 VBG pO2 VBG HCO3 VBG Total CO2 VBG O2 Saturation VBG Base Excess VBG Lactic Acid 3.3 H Carboxyhemoglobin Sodium 129 L Potassium 2.7 L* Chloride 87 L Carbon Dioxide Glucose 192 H Magnesium 1.1 L Direct Bilirubin GGT C-Reactive Protein Procalcitonin 12/17/20 20:01 WBC RBC Hgb Hct Neut % (Auto) Lymph % (Auto) Lymph # (Auto) [place] # (Auto) Seg Neutrophils % Lymphocytes % Absolute Neutrophils ABG Methemoglobin 0.3 L VBG pH 7.54 H VBG pCO2 34.5 L VBG pO2 77.0 H VBG HCO3 28.6 H VBG Total CO2 29.6 H VBG O2 Saturation 92.9 H VBG Base Excess 6 H VBG Lactic Acid Carboxyhemoglobin 3.5 H Sodium Potassium Chloride Carbon Dioxide Glucose Magnesium Direct Bilirubin GGT C-Reactive Protein Procalcitonin Meds: Medications Acetaminophen (Acetaminophen 325 Mg Tablet) 650 mg PO Q6HP PRN; Protocol PRN Reason: Per Pain Protocol/Fever > 99 Albuterol/Ipratropium (Ipratropium/Albuterol 3 Ml Ampul.Neb) 3 ml NEB Q4HP PRN PRN Reason: Shortness Of Breath Allopurinol (Allopurinol 300 Mg Tablet) 300 mg PO DAILY [facility] Aspirin (Aspirin 81 Mg Tab.Chew) 81 mg PO HS [facility] Last Admin: 12/19/20 21:53 Dose: 81 mg Documented by: Carvedilol (Carvedilol 12.5 Mg Tablet) 12.5 mg PO BIDCC [facility] Last Admin: 12/19/20 17:45 Dose: 12.5 mg Documented by: Dextrose (Dextrose 50% 50 Ml Vial) 0 ml IV UD PRN PRN Reason: Hypoglycemia Diagnostic Test (Pha) (Accu-Chek 1 Each Strip) 1 each FS [facility] Last Admin: 12/19/20 21:54 Dose: 1 each Documented by: Docusate Sodium (Docusate Sodium 100 Mg Capsule) 100 mg PO BID [facility] Last Admin: 12/19/20 21:47 Dose: Not Given Documented by: Enoxaparin Sodium (Enoxaparin 40 Mg/0.4 Ml Syringe) 40 mg SQ DAILY [facility] Furosemide (Furosemide 20 Mg Tablet) 40 mg PO BIDD [facility] Glucose (Dextrose 31 Gm Oral.Susp) 15 gm PO PRN PRN PRN Reason: Hypoglycemia Ceftriaxone Sodium 2 gm/ (Dextrose) 50 mls @ 100 mls/hr IV Q24H [facility]; Protocol Last Infusion: 12/19/20 11:35 Dose: Infused Documented by: Magnesium Sulfate (Magnesium Sulfate) 2 gm in 50 mls @ 50 mls/hr IV UD PRN PRN Reason: Magnesium </= 1.6 Potassium Chloride 40 meq/ (Dextrose) 520 mls @ 130 mls/hr IV UD PRN PRN Reason: Potassium < 3 Insulin Human Lispro (Insulin Lispro 1 Unit/0.01 Ml Unit) 0 unit SQ ACHS [facility]; Protocol Last Admin: 12/19/20 21:54 Dose: 2 unit Documented by: Levothyroxine Sodium (Levothyroxine 75 Mcg Tablet) 75 mcg PO ACB [facility] Ondansetron HCl (Ondansetron 4 Mg/2 Ml Vial) 4 mg IV Q4HP PRN PRN Reason: Nausea And Vomiting Potassium Chloride (Potassium Chloride 20 Meq Tablet) 40 meq PO UD PRN PRN Reason: Potssium is 3-3.5 Potassium Chloride (Potassium Chloride 20 Meq Tablet) 40 meq PO UD PRN PRN Reason: Potassium < 3 Senna (Sennosides 1 Tablet) 2 tab PO DAILYP PRN PRN Reason: Constipation Sodium Chloride (0.9 % Sodium Chloride 10 Ml Syringe) 10 ml IV Q8 [facility] Last Admin: 12/20/20 05:37 Dose: 10 ml Documented by: ABG Interpretation ABG results: 12/17/20 20:01 ABG Methemoglobin 0.3 L VBG pH 7.54 H VBG pCO2 34.5 L VBG pO2 77.0 H VBG HCO3 28.6 H VBG Total CO2 29.6 H VBG O2 Saturation 92.9 H VBG Base Excess 6 H A/P Narrative A/P Narrative: A: *Bacteremia (Strep group B): 2/2 LLE -chest/abd/pelv and UA unremarkable, no wounds *LLE Cellulitis w/skin tear: *Sepsis w/lactic acidosis: 2/2 above -resolved *Venous stasis & Peripheral edema, acute on chronic: predisposing factors to GBS *CMP(EF 45% in September) w/ACID: *Hyponatremia: improving *Hypokalemia/hypomagnesemia: improving *DM: *HTN: *Hypothyroidism: *NPH: P: -Rocephin, pending final BC -pending labs -electrolyte replacement -cont home ASA/Coreg -SSI, hold metformin -compression stockings/elevate -pt/ot -ppx: lovenox full code Time Spent With Patient Time: Total time spent is greater than 50% in coordination of care (as document ed) at patient's floor/unit and/or counseling patient: QUALITY VTE Deep Vein Thrombosis/Pulmonary Embolism Present on Admission: No
[2020-12-20] MEDS: INSULIN LISPRO 1 UNIT/0.01 ML UNIT SQ SCH ×4 (07:53→20:41)
[2020-12-20] MEDS: POTASSIUM CHLORIDE 20 MEQ TABLET PO PRN (07:54)
[2020-12-20 08:37] LABS: Basophils # (Auto) 0.05 K/mcL (0.00-0.20); Basophils % (Auto) 0.5 % (0.0-2.0); Eosinophils # (Auto) 0.08 K/mcL (0.00-0.70); Eosinophils % (Auto) 0.8 % (0.0-7.0); Hematocrit 40.7 % (41.0-55.0); Lymphocytes # (Auto) 1.18 K/mcL (1.50-4.80); Lymphocytes % (Auto) 11.4 % (15.0-49.0); Mean Cell Volume 86.8 fL (80.0-100.0); Mean Corpuscular HGB Conc 34.4 g/dL (31.0-36.0); Mean Platelet Volume 10.5 fL (7.4-10.4); Monocytes # (Auto) 0.94 K/mcL (0.10-0.90); Neutrophils % (Auto) 78.3 % (38.0-78.0); Platelet Count 202 K/mcL (140-440); RBC 4.69 M/mcL (4.50-5.90); WBC 10.4 K/mcL (4.5-11.0)
[2020-12-20 09:02] LABS: Blood Urea Nitrogen 14 mg/dL (8-23); Calcium 9.5 mg/dL (8.6-10.4); Carbon Dioxide 29 mmol/L (22-30); Chloride 90 mmol/L (96-108); Glomerular Filtration Rate 62; Glucose 140 mg/dL (70-105)
[2020-12-20] MEDS: ALLOPURINOL 300 MG TABLET PO SCH (09:24)
[2020-12-20] MEDS: ENOXAPARIN 40 MG/0.4 ML SYRINGE SQ SCH (09:24)
[2020-12-20] MEDS: cefTRIAXone 2 GM in DEXTROSE 5% IN WATER 50 ML IV SCH (11:35)
--- NOTE | 2020-12-20 12:11 | Internal Med Progress Note ---
SUBJECTIVE Subjective Patient information: Note initiated : 12/21/20 at 12:05 pm Service Date, if different from initiated Date: [] Patient: Andrew León a 80 y/o M admitted on 12/18/20 for dizziness. Chief Complaint: [] Interval history: History of present illness: Mr. León is a 80 year old M Presented ED with increasing weakness and lightheadedness. Sounds like there was some mild confusion as well. Does have a history of heart failure and has chronic lower extremity swelling. The lower extremity swelling is mild off and on for quite a long time but over the past month it has been increasing despite starting diuretics through his primary care provider. 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 He went to bed the other night feeling his normal but in the morning he was too weak to get up out of the chair. He has had difficulty with weakness and walking over the past 6 months or more but yesterday morning he could not get up out of the chair and it was worse than usual. And he was also very lightheaded. He did not feel feverish but in the ED he was febrile. And no cough. He also had both Covid shots. No reports of diarrhea or dysuria Reports no recent illnesses no sick contacts. Work-up in the ED found him to have a fever and leukocytosis. Blood pressure stable. Chest x-ray is unrevealing and CT abdomen pelvis unrevealing as well. Lactate was elevated at 3.3 and procalcitonin was mildly elevated. 12/19 No new pains or complaints or overnight events. Leukocytosis improved. Sodium little better potassium allow. The blood culture obtained in the ED is growing gram-positive cocci. Patient started on Vanco symptoms that resulted. He still feels weak. He did have diarrhea after the oral contrast for the CT abdomen 12/20 Patient says he remembers a little white bump on his legs that he scratched and got a little bigger after he scratched it. Says his left leg feels little better today less tender. Patient overall feeling better. Overnight event or new complaints. Awaiting labs. 12/21 Removed valenzuela catheter, sentinel blood cultures-NGTD. TTE ECHO ordered. Planning for 14 days of antibiotic therapy given risk factors of DM, obesity, and lymphedema. Physical exam Head: Atraumatic, normal inspection. Eyes: normal appearance, no scleral icterus. Neck: full ROM Respiratory: no respiratory distress. Cardiovascular: normal rate and rhythm, S1, S2. GI/Abdominal: soft, nontender, no guarding. Extremities: left lower extremity edema Neurological: CN II-XII intact, intact motor, intact sensation. Psychiatric: normal mood. Skin: left lower extremity redness, wound back or left calf Constitutional Vitals: Vital Signs Temp Pulse Resp BP Pulse Ox 97.5 F 77 16 120/80 95 12/20/20 08:00 12/20/20 08:00 12/20/20 08:00 12/20/20 08:00 12/20/20 08:00 Period Temp Pulse Resp BP Sys/Corona Pulse Ox Last 24 Hr 97.5 F-98.5 F 72-80 16-22 98-138/69-81 92-96 Intake and Output 12/19/20 12/20/20 12/20/20 21:59 05:59 13:59 Intake Total 510 200 Output Total 1175 1250 Balance -665 -1050 Weight 119.249 kg Intake & Output: Intake & Output 12/19/20 12/20/20 12/20/20 21:59 05:59 13:59 Intake Total 510 200 Output Total 1175 1250 Balance -665 -1050 Weight 119.249 kg Intake: Oral 450 200 GI Tube Flush 60 Output: Urine Catheter Amount 1175 1250 Other: Meal Dinner Percent of Meal Consumed Refused Urine Appearance Clear Clear Uretheral ([place]) Clear Clear Urine Color [place] Dark Yellow Uretheral ([place]) Bright Yellow [place] Colored Stool Size Small Stool Color Brown Stool Consistency Soft # Bowel Movements 1 Exam: General: Alert, Awake, No acute Distress, obese Eyes/N/T: EOMI, , Head/Neck: neck supple, CV: RRR, No murmurs, Pulm: Clear b/l, no wheezing/rhonchi/rales Abd: soft, nontender, +BS x4 Ext: no clubbing/cyanosis, 1+ RLE improved 2+ LLE edema improving Neuro: Alert, no focal deficits, moves all extremities, Skin: warm/dry OBJ DATA Labs CBC & Chem 7: 12/21/20 05:36 12/21/20 05:36 Labs: Abnormal Lab Results 12/20/20 12/20/20 12/20/20 08:04 08:04 08:04 WBC RBC Hgb Hct 40.7 L MPV 10.5 H Neut % (Auto) 78.3 H Lymph % (Auto) 11.4 L Lymph # (Auto) 1.18 L [place] # (Auto) 0.94 H Seg Neutrophils % Lymphocytes % Absolute Neutrophils 8.14 H ABG Methemoglobin VBG pH VBG pCO2 VBG pO2 VBG HCO3 VBG Total CO2 VBG O2 Saturation VBG Base Excess VBG Lactic Acid Carboxyhemoglobin Sodium 132 L Potassium Chloride 90 L Carbon Dioxide Glucose 140 H Magnesium Direct Bilirubin GGT C-Reactive Protein Procalcitonin 1.36 H 12/19/20 12/19/20 12/19/20 05:30 05:30 05:30 WBC 14.3 H RBC 4.29 L Hgb 12.8 L Hct 36.8 L MPV Neut % (Auto) 82.1 H Lymph % (Auto) 10.3 L Lymph # (Auto) 1.47 L [place] # (Auto) 1.00 H Seg Neutrophils % Lymphocytes % Absolute Neutrophils 11.70 H ABG Methemoglobin VBG pH VBG pCO2 VBG pO2 VBG HCO3 VBG Total CO2 VBG O2 Saturation VBG Base Excess VBG Lactic Acid Carboxyhemoglobin Sodium 130 L Potassium 2.7 L* Chloride 91 L Carbon Dioxide Glucose 141 H Magnesium Direct Bilirubin 0.3 H GGT 73 H C-Reactive Protein 21.60 H Procalcitonin 1.98 H 12/18/20 12/18/20 12/17/20 15:53 08:11 20:04 WBC RBC Hgb Hct MPV Neut % (Auto) Lymph % (Auto) Lymph # (Auto) [place] # (Auto) Seg Neutrophils % 90 H Lymphocytes % 4 L Absolute Neutrophils ABG Methemoglobin VBG pH VBG pCO2 VBG pO2 VBG HCO3 VBG Total CO2 VBG O2 Saturation VBG Base Excess VBG Lactic Acid Carboxyhemoglobin Sodium 128 L Potassium 2.8 L* Chloride 88 L Carbon Dioxide 32 H Glucose 148 H Magnesium 1.5 L Direct Bilirubin GGT C-Reactive Protein Procalcitonin 0.53 H 12/17/20 12/17/20 12/17/20 20:04 20:04 20:01 WBC 21.3 H RBC Hgb Hct 39.6 L MPV Neut % (Auto) 91.5 H Lymph % (Auto) 2.4 L Lymph # (Auto) 0.51 L [place] # (Auto) 1.15 H Seg Neutrophils % Lymphocytes % Absolute Neutrophils 19.52 H ABG Methemoglobin VBG pH VBG pCO2 VBG pO2 VBG HCO3 VBG Total CO2 VBG O2 Saturation VBG Base Excess VBG Lactic Acid 3.3 H Carboxyhemoglobin Sodium 129 L Potassium 2.7 L* Chloride 87 L Carbon Dioxide Glucose 192 H Magnesium 1.1 L Direct Bilirubin GGT C-Reactive Protein Procalcitonin 12/17/20 20:01 WBC RBC Hgb Hct MPV Neut % (Auto) Lymph % (Auto) Lymph # (Auto) [place] # (Auto) Seg Neutrophils % Lymphocytes % Absolute Neutrophils ABG Methemoglobin 0.3 L VBG pH 7.54 H VBG pCO2 34.5 L VBG pO2 77.0 H VBG HCO3 28.6 H VBG Total CO2 29.6 H VBG O2 Saturation 92.9 H VBG Base Excess 6 H VBG Lactic Acid Carboxyhemoglobin 3.5 H Sodium Potassium Chloride Carbon Dioxide Glucose Magnesium Direct Bilirubin GGT C-Reactive Protein Procalcitonin Meds: Medications Acetaminophen (Acetaminophen 325 Mg Tablet) 650 mg PO Q6HP PRN; Protocol PRN Reason: Per Pain Protocol/Fever > 99 Albuterol/Ipratropium (Ipratropium/Albuterol 3 Ml Ampul.Neb) 3 ml NEB Q4HP PRN PRN Reason: Shortness Of Breath Allopurinol (Allopurinol 300 Mg Tablet) 300 mg PO DAILY [facility] Last Admin: 12/20/20 09:24 Dose: 300 mg Documented by: Aspirin (Aspirin 81 Mg Tab.Chew) 81 mg PO HS [facility] Last Admin: 12/19/20 21:53 Dose: 81 mg Documented by: Carvedilol (Carvedilol 12.5 Mg Tablet) 12.5 mg PO BIDCC [facility] Last Admin: 12/20/20 07:39 Dose: 12.5 mg Documented by: Dextrose (Dextrose 50% 50 Ml Vial) 0 ml IV UD PRN PRN Reason: Hypoglycemia Diagnostic Test (Pha) (Accu-Chek 1 Each Strip) 1 each FS ACHS [facility] Last Admin: 12/20/20 11:29 Dose: 1 each Documented by: Enoxaparin Sodium (Enoxaparin 40 Mg/0.4 Ml Syringe) 40 mg SQ DAILY [facility] Last Admin: 12/20/20 09:24 Dose: 40 mg Documented by: Furosemide (Furosemide 20 Mg Tablet) 40 mg PO BIDD [facility] Last Admin: 12/20/20 07:39 Dose: 40 mg Documented by: Glucose (Dextrose 31 Gm Oral.Susp) 15 gm PO PRN PRN PRN Reason: Hypoglycemia Ceftriaxone Sodium 2 gm/ (Dextrose) 50 mls @ 100 mls/hr IV Q24H [facility]; Protocol Last Admin: 12/20/20 11:35 Dose: 100 mls/hr Documented by: Magnesium Sulfate (Magnesium Sulfate) 2 gm in 50 mls @ 50 mls/hr IV UD PRN PRN Reason: Magnesium </= 1.6 Potassium Chloride 40 meq/ (Dextrose) 520 mls @ 130 mls/hr IV UD PRN PRN Reason: Potassium < 3 Insulin Human Lispro (Insulin Lispro 1 Unit/0.01 Ml Unit) 0 unit SQ ACHS [facility]; Protocol Last Admin: 12/20/20 11:30 Dose: 2 unit Documented by: Levothyroxine Sodium (Levothyroxine 75 Mcg Tablet) 75 mcg PO ACB [facility] Last Admin: 12/20/20 07:39 Dose: 75 mcg Documented by: Ondansetron HCl (Ondansetron 4 Mg/2 Ml Vial) 4 mg IV Q4HP PRN PRN Reason: Nausea And Vomiting Potassium Chloride (Potassium Chloride 20 Meq Tablet) 40 meq PO UD PRN PRN Reason: Potssium is 3-3.5 Last Admin: 12/20/20 07:54 Dose: 40 meq Documented by: Potassium Chloride (Potassium Chloride 20 Meq Tablet) 40 meq PO UD PRN PRN Reason: Potassium < 3 Senna (Sennosides 1 Tablet) 2 tab PO DAILYP PRN PRN Reason: Constipation Sodium Chloride (0.9 % Sodium Chloride 10 Ml Syringe) 10 ml IV Q8 [facility] Last Admin: 12/20/20 05:37 Dose: 10 ml Documented by: ABG Interpretation ABG results: 12/17/20 20:01 ABG Methemoglobin 0.3 L VBG pH 7.54 H VBG pCO2 34.5 L VBG pO2 77.0 H VBG HCO3 28.6 H VBG Total CO2 29.6 H VBG O2 Saturation 92.9 H VBG Base Excess 6 H A/P Narrative A/P Narrative: Assessment: 80-year-old male with history of hypertension, diabetes mellitus, hypothyroidism, NPH admitted for sepsis secondary to left lower extremity cellulitis complicated by Strep agalactiae bacteremia. *Bacteremia (Strep group B): 2/2 LLE -chest/abd/pelv and UA unremarkable, no wounds *LLE Cellulitis w/skin tear: improved *Sepsis w/lactic acidosis: 2/2 above -resolved *Venous stasis & peripheral edema, acute on chronic: predisposing factors to GBS *CMP(EF 45% in September) w/ACID: *Hyponatremia *Hypokalemia *DM: *HTN: *Hypothyroidism: *NPH: Plan: -Ceftriaxone 2 gm IV Q24 hrs-planning for 14 day treatment course w/ PICC at home. -TTE ECHO -electrolyte replacement as needed -cont home ASA/Coreg -Lantus and SSI, hold metformin -compression stockings/elevate -pt/ot -ppx: lovenox full code Time Spent With Patient Time: Total time spent is greater than 50% in coordination of care (as documented) at patient's floor/unit and/or counseling patient: QUALITY VTE Deep Vein Thrombosis/Pulmonary Embolism Present on Admission: No
[2020-12-20] MEDS: ASPIRIN 81 MG TAB.CHEW PO SCH (20:37)
[2020-12-21] MEDS: 0.9 % SODIUM CHLORIDE 10 ML SYRINGE IV SCH ×3 (06:51→20:43)
[2020-12-21] MEDS: INSULIN LISPRO 1 UNIT/0.01 ML UNIT SQ SCH ×4 (06:55→20:42)
[2020-12-21] MEDS: LEVOTHYROXINE 75 MCG TABLET PO SCH (07:03)
[2020-12-21 07:17] LABS: Basophils # (Auto) 0.06 K/mcL (0.00-0.20); Basophils % (Auto) 0.7 % (0.0-2.0); Eosinophils # (Auto) 0.18 K/mcL (0.00-0.70); Hematocrit 41.5 % (41.0-55.0); Hemoglobin 14.1 g/dL (13.5-16.5); Lymphocytes # (Auto) 1.36 K/mcL (1.50-4.80); Lymphocytes % (Auto) 15.3 % (15.0-49.0); Mean Cell Volume 87.4 fL (80.0-100.0); Mean Platelet Volume 10.4 fL (7.4-10.4); Monocytes # (Auto) 0.86 K/mcL (0.10-0.90); Monocytes % (Auto) 9.7 % (1.0-12.0); Neutrophils % (Auto) 72.3 % (38.0-78.0); Platelet Count 234 K/mcL (140-440); RBC 4.75 M/mcL (4.50-5.90); Red Cell Distribution Width 12.9 % (11.5-14.5); WBC 8.9 K/mcL (4.5-11.0)
[2020-12-21 07:40] LABS: Blood Urea Nitrogen 15 mg/dL (8-23); Calcium 9.9 mg/dL (8.6-10.4); Carbon Dioxide 29 mmol/L (22-30); Chloride 91 mmol/L (96-108); Glomerular Filtration Rate 70; Glucose 136 mg/dL (70-105)
[2020-12-21] MEDS: FUROSEMIDE 20 MG TABLET PO SCH ×2 (07:50→15:40)
[2020-12-21] MEDS: CARVEDILOL 12.5 MG TABLET PO SCH ×2 (07:50→17:11)
[2020-12-21] MEDS: POTASSIUM CHLORIDE 20 MEQ TABLET PO PRN (07:51)
[2020-12-21] MEDS: cefTRIAXone 2 GM in DEXTROSE 5% IN WATER 50 ML IV SCH (09:11)
[2020-12-21] MEDS: ENOXAPARIN 40 MG/0.4 ML SYRINGE SQ SCH (09:11)
[2020-12-21] MEDS: ALLOPURINOL 300 MG TABLET PO SCH (09:12)
[2020-12-21] MEDS: ASPIRIN 81 MG TAB.CHEW PO SCH (20:43)
[2020-12-21] MEDS ORDERED: INSULIN GLARGINE, HUMAN 1 UNIT/0.01 ML SQ SCH (21:00)
[2020-12-22] MEDS: 0.9 % SODIUM CHLORIDE 10 ML SYRINGE IV SCH ×2 (06:00→15:32)
[2020-12-22] MEDS: LEVOTHYROXINE 75 MCG TABLET PO SCH (07:40)
[2020-12-22 07:57] LABS: ALT/SGPT 28 U/L (<40); AST/SGOT 27 U/L (<40); Albumin/Globulin Ratio 1.1 (1.0-2.3); Alkaline Phosphatase 126 U/L (39-117); Bilirubin,Direct 0.2 mg/dL (<0.3); Bilirubin,Total 0.9 mg/dL (0.1-1.0); Blood Urea Nitrogen 16 mg/dL (8-23); Calcium 9.8 mg/dL (8.6-10.4); Carbon Dioxide 26 mmol/L (22-30); Chloride 91 mmol/L (96-108); Globulin 3.5 gm/dL (2.2-3.7); Glomerular Filtration Rate 83; Glucose 152 mg/dL (70-105); Lactate Dehydrogenase 135 U/L (135-225); Triglycerides 173 mg/dL (<150); Uric Acid 7.2 mg/dL (2.5-8.0)
[2020-12-22] MEDS: cefTRIAXone 2 GM in DEXTROSE 5% IN WATER 50 ML IV SCH (09:00)
[2020-12-22] MEDS: FUROSEMIDE 20 MG TABLET PO SCH ×2 (09:22→15:29)
[2020-12-22] MEDS: POTASSIUM CHLORIDE 20 MEQ TABLET PO PRN (09:22)
[2020-12-22] MEDS: ALLOPURINOL 300 MG TABLET PO SCH (09:22)
[2020-12-22] MEDS: CARVEDILOL 12.5 MG TABLET PO SCH (09:22)
[2020-12-22] MEDS: ENOXAPARIN 40 MG/0.4 ML SYRINGE SQ SCH (09:22)
[2020-12-22] MEDS: INSULIN LISPRO 1 UNIT/0.01 ML UNIT SQ SCH ×2 (09:23→11:52)
--- NOTE | 2020-12-22 13:22 | Discharge Summary ---
Discharge Provider Provider Patient information: Note initiated : 12/22/20 at 1:06 pm Service Date, if different from initiated Date: [] Patient: Andrew León 80 y/o M admitted on 12/18/20 for dizziness. Chief Complaint: [] Date of admission: 12/18/20 02:30 Discharge date: 12/22/20 Primary care physician: Féilx Hickman MD Discharge Meds Discharge Medications Home Medications lancets 30 gauge #200 each 09/30/19 [Rx Confirmed 12/18/20 Last Taken Unknown] cyanocobalamin (vitamin B-12) 1,000 mcg PO DAILY 03/02/20 [History Confirmed 12/17/20 Last Taken Unknown] blood-glucose meter #1 each 08/07/20 [Rx Confirmed 12/18/20 Last Taken Unknown] allopurinol 300 mg tablet 300 mg PO QDAY #90 tab 08/31/20 [Rx Confirmed 12/17/20 Last Taken Unknown] carvedilol 25 mg tablet 25 mg PO BID 90 Days #180 tab 10/26/20 [Rx Confirmed 12/17/20 Last Taken Unknown] levothyroxine 75 mcg tablet 75 mcg PO QDAY #90 tab 12/13/20 [Rx Confirmed 12/17/20 Last Taken Unknown] aspirin [Adult Low Dose Aspirin] 81 mg PO QHS 12/17/20 [History Confirmed 12/17/20 Last Taken Unknown] furosemide 40 mg PO BID 12/17/20 [History Confirmed 12/18/20 Last Taken Unknown] metformin 1,000 mg PO QHS 12/17/20 [History Confirmed 12/17/20 Last Taken Unknown] ceftriaxone 2 g IV Q24H 10 Days ea 12/22/20 [Rx Last Taken Unknown] potassium chloride [Klor-Con M20] 20 meq PO [facility] #30 tab 12/22/20 [Rx Last Taken Unknown] COURSE Hospital Course Hospital course: 80 year old male with a history of hypertension, diabetes mellitus II, hypothyroidism, congestive heart failure, obesity presented ED with increasing weakness and lightheadedness and mildly confused. The patient had a fever in the ED and leukocytosis. Left lower extremity cellulitis and a left lower extremity wound appreciated. Lactic acid was 3.3. Blood cultures drawn, t he patient was started on broad spectrum antibiotics. Chest x-ray is unrevealing and CT abdomen pelvis unrevealing as well. Left lower extremity venous duplex negative for DVT. Hyponatremia in the ED. 12/19 No new pains or complaints or overnight events. Leukocytosis improved. Sodium little better potassium allow. The blood culture obtained in the ED is growing gram-positive cocci. Patient started on Vancomycin IV symptoms that resulted. He still feels weak. He did have diarrhea after the oral contrast for the CT abdomen. 12/20 Patient says he remembers a little white bump on his legs that he scratched and got a little bigger after he scratched it. Says his left leg feels little better today less tender. Patient overall feeling better. Overnight event or new complaints. Blood culture grew Streptococcus agalactiae. Antibiotic coverage changed to Ceftriaxone. [place] blood cultures ordered. 12/21 Removed valenzuela catheter, sentinel blood cultures-NGTD. TTE ECHO negative for valvular vegetation. Planning for 14 days of IV antibiotic therapy given risk factors of DM, obesity, and lymphedema. 12/22 [place] blood cultures-NGTD. PICC line ordered. Discharge to SNF to complete 14 days of Ceftriaxone treatment, wound care, and rehab. Post discharge follow up; -Complete 14 days of Ceftriaxone 2 gm IV Q24 hrs at [facility]. -Follow up pending blood cultures to completion. -Weekly CBC and CMP while receiving IV antibiotic treatment. -Left lower extremity elevation when able for lymphedema. -Consider adding JONATHAN-I for heart failure with midrange ejection fraction (LV EF 45%) -Monitor potassium level-discharged on daily potassium supplementation (on lasix BID). -Follow up with wound care specialty provider (Dr. August) for left lower extremity wound in the setting of multiple risk factors for adverse outcome. -Follow up ECHO for aortic insufficiency (mild to moderate). Discharge diagnosis: Group B Streptococcus bacteremia Secondary discharge diagnosis: Left lower extremity cellulitis Left lower extremity venous stasis wound Time Spent with Patient Time attestation: Total time spent providing and/or coordinating discharge services: EXAM Constitutional Vitals: Temp Pulse Resp BP Pulse Ox 98.6 F 77 18 112/72 95 12/22/20 11:19 12/22/20 11:19 12/22/20 11:19 12/22/20 11:19 12/22/20 11:19 Additional findings Additional findings: Head: Atraumatic, normal inspection. Eyes: normal appearance, no scleral icterus. Neck: full ROM Respiratory: no respiratory distress. Cardiovascular: normal rate and rhythm, S1, S2. GI/Abdominal: soft, nontender, no guarding. Extremities: Left lower extremity edema, bilateral compression stockings Neurological: CN II-XII intact, intact motor, intact sensation. Psychiatric: normal mood. Skin: left lower extremity cellulitis improved, left lower extremity wound likely secondary to venous stasis Discharge Data Data Completed and Pending Labs on day of discharge: Labs from last 24 hours 12/22/20 06:54 Sodium 129 L Potassium 3.3 Chloride 91 L Carbon Dioxide 26 Anion Gap 12.0 BUN 16 Creatinine 0.8 GFR Calculation 83 Glucose 152 H Uric Acid 7.2 Calcium 9.8 Phosphorus 4.0 Magnesium 1.6 Total Bilirubin 0.9 Direct Bilirubin 0.2 GGT 185 H AST 27 ALT 28 Alkaline Phosphatase 126 H Lactate Dehydrogenase 135 Total Protein 7.5 Albumin 4.0 Globulin 3.5 Albumin/Globulin Ratio 1.1 Triglycerides 173 H Preliminary micro results at discharge 12/18/20 08:11 Blood Culture - Preliminary Blood 12/19/20 05:54 Blood Culture - Preliminary Blood 12/19/20 05:30 Blood Culture - Preliminary Blood 12/17/20 20:04 Blood Culture - Preliminary Blood Strep agalactiae - (group b) Discharge Plan Patient/Caregiver Discharge Instructions Activity: as per physical therapy Diet: Consistent Carbohydrate Instructions: Heart Failure (DC), Sepsis (GEN), Stasis Dermatitis (DC), Venous Insufficiency (DC) Activity Restrictions/Additional Instructions: Follow up at wound healing center for left posterior leg venous wound as new patient at earliest possible visit. Elevate lower extremities. Call your physician for sustained fever greater than 100.5, bleeding, increase in symptoms, or any questions/concerns. This discharge packet is provided to you to help keep you informed about your care. We want to ensure you get everything you need when you go home. You will also be receiving a call from us in a few days to follow up with you and see how you are doing since your discharge. This gives us a chance to listen to any concerns you maybe experiencing since you were discharged or any additional needs you may have, as well as providing us feedback on your care experience. We strive to always provide excellent care and thank you for your feedback and for choosing [facility]. Prescriptions: New ceftriaxone 2 gram Recon Soln 2 g IV Q24H 10 Days RF: 0 potassium chloride [Klor-Con M20] 20 mEq Tablet,Er Particles/Crystals 20 meq PO QAMCC Qty: 30 RF: 3 Continued (DME) lancets [2-In-1 Lancet Device] 30 gauge misc See Rx Instructions .ROUTE .MEDSUPPLY Qty: 200 RF: 4 (DME) blood-glucose meter [Blood Glucose Monitoring] Kit See Rx Instructions .ROUTE .MEDSUPPLY Qty: 1 RF: 0 allopurinol 300 mg tablet 300 mg PO QDAY Qty: 90 RF: 1 carvedilol [Coreg] 25 mg tablet 25 mg PO BID 90 Days Qty: 180 RF: 1 levothyroxine 75 mcg tablet 75 mcg PO QDAY Qty: 90 RF: 1 cyanocobalamin (vitamin B-12) 2,500 MCG tablet 1,000 mcg PO DAILY RF: 0 aspirin [Adult Low Dose Aspirin] 81 mg tablet,delayed release (DR/EC) 81 mg PO QHS RF: 0 metformin 1,000 mg tablet 1,000 mg PO QHS RF: 0 furosemide 20 mg tablet 40 mg PO BID RF: 0 Discontinued chlorthalidone 25 mg tablet 25 mg PO QDAY Qty: 90 RF: 1 Hold Instructions: Doctor's Order Follow Up Plan Follow up with: Bruno Campos MD [Physician] - (Please call and schedule an appointment.) Félix Hickman MD [Primary Care Provider] - (Please call and schedule a hospital follow up.) Patient Disposition: er SNF Plan of Treatment: Complete 10 more days of Ceftriaxone 2 gm IV daily for a total of 14 days. Wound care for left lower extremity venous ulcer. Prognosis: Fair Rehab Potential: Fair Overall status at discharge: patient is progressing back to baseline Discharge Orders: Discharge Order (Routine); Ordered 12/22/20 Ordered By: Jian DALLAS VTE Deep Vein Thrombosis/Pulmonary Embolism Present on Admission: No
--- NOTE | 2020-12-22 14:33 | XRay Report ---
INDICATION: PICC PLACEMENT TECHNIQUE: AP portable semiupright chest x-ray COMPARISON: None FINDINGS: Right-sided PICC line with its tip at the junction of the right subclavian vein and superior vena cava. This should be advanced if possible. There is a left-sided transvenous pacemaker with leads in appropriate positions for right atrium and right ventricle. No focal pulmonary parenchymal infiltrate or mass. Heart size and vascularity are normal. IMPRESSION: Right-sided PICC line with its tip at the junction of the subclavian vein and superior vena cava Interpreted and Authenticated by: Aquilino Ramirez 12/22/20
[2020-12-23] MEDS ORDERED: POTASSIUM CHLORIDE 20 MEQ TABLET PO SCH (08:00)
== END 2020-12-22 15:40 | DRG 872 ==
LOC: ED 19:25 → ICU 12-18 02:30 → MEDSUR 12-19 17:45
PROVIDERS: ADMIT Internal Medicine; ATTEND Internal Medicine